=== PATIENT | male | born 1960 | race Caucasian/White ===

== ENCOUNTER 2023-05-31 20:05 | Inpatient (IN) | payer MEDICAID, SELFPAY ==
--- NOTE | ~2023-05-31 | CT_ITS ---
EXAMINATION: CT ABDOMEN AND PELVIS WITHOUT CONTRAST CLINICAL INFORMATION: abdominal pain, rule out appendicitis. COMPARISON: No pertinent prior studies are available for comparison. TECHNIQUE: Multidetector volumetric imaging was performed from the superior aspect of the liver through the pubic symphysis without contrast per request. Sagittal and coronal reformatted images were obtained on the technologist workstation. This CT examination was performed using dose optimization techniques as appropriate, variously including the following: *Automated exposure control *Adjustment of mA and/or kV according to patient size (this includes techniques or standardized protocols for targeted exams where dose is matched to indication/reason for exam; i.e. extremities or head) *Use of iterative reconstruction technique DLP: 892 mGy-cm. FINDINGS: LUNG BASES: Minimal dependent airspace changes likely due to atelectasis. Pacemaker/AICD leads noted. LIVER, GALLBLADDER, BILIARY TREE: Somewhat atrophic liver but no focal hepatic lesion nor biliary ductal dilatation on this noncontrast study. Gallbladder is markedly distended containing multiple radiodense layering gallstones. No obvious gallbladder wall thickening or pericholecystic inflammatory change. PANCREAS: Extremely atrophic and fatty infiltrated but no obvious peripancreatic fluid SPLEEN: Unremarkable. ADRENAL GLANDS: Unremarkable. KIDNEYS AND URETERS: The left kidney is atrophic with possible posttreatment region of fat necrosis along the posterior lower pole. There is compensatory hypertrophy of the contralateral right kidney. No obstructive changes within the kidneys or collecting system. BLADDER: Unremarkable. GASTROINTESTINAL TRACT: Colon is redundant containing moderate amount of stool. Few scattered colonic diverticula are present. I do not appreciate any colonic wall thickening or pericolonic inflammatory change at this time. Normal-appearing appendix with no periappendiceal inflammatory changes noted visualized small bowel unremarkable ABDOMINAL WALL: No significant hernia is appreciated. LYMPHOVASCULAR STRUCTURES: Extensive vascular calcification. No bulky adenopathy. PELVIC VISCERA: Unremarkable. OSSEUS STRUCTURES: Multilevel degenerative changes in the spine with degenerative changes in both hips CT/CT abdomen pelvis wo IV con IMPRESSION: 1. The gallbladder is markedly distended containing multiple radiodense gallstones but I do not appreciate any obvious gallbladder wall thickening or pericholecystic inflammatory change. No biliary ductal dilatation. 2. Atrophic left kidney with compensatory hypertrophy of the contralateral right kidney. 3. Normal-appearing appendix with no periappendiceal inflammatory changes. Moderate amount of stool throughout the redundant colon.
--- NOTE | ~2023-05-31 | US_ITS ---
EXAMINATION: US ABDOMEN LIMITED CLINICAL INFORMATION: Abnormal CT. Assess gallbladder.. COMPARISON: None available. TECHNIQUE: Real-time imaging of the right upper quadrant abdominal viscera. FINDINGS: PANCREAS: Not assessed. LIVER: Visualized liver is within normal limits. There is no intrahepatic biliary duct dilatation seen. GALLBLADDER: The gallbladder is distended and contains multiple small shadowing gallbladder calculi likely associated sludge. There is no gallbladder wall thickening. There is no pericholecystic fluid. COMMON BILE DUCT: Normal in caliber measuring 0.6 cm in diameter. RIGHT KIDNEY: Not imaged. FREE FLUID: None. US/US abdomen limited IMPRESSION: Cholelithiasis without sonographic evidence of acute cholecystitis.
[2023-05-31 20:16] VITALS: BP 151/92; PULSE 55; O2SAT 98
[2023-05-31 20:22] VITALS: BP 155/70; PULSE 58; RESP 16; TEMP 36.6; O2SAT 93; BMI 26.6
--- NOTE | 2023-05-31 20:36 | ED.ABDPAIN ---
HPI - Abdominal Pain General Chief Complaint: Abdominal Pain Stated Complaint: Abd pain Time Seen by Provider: 05/31/23 20:25 Source: patient, EMS and RN notes reviewed Mode of arrival: EMS Limitations: physical limitation History of Present Illness HPI narrative: 63-year-old male came in from custodial by ambulance for evaluation of abdominal pain. Patient's symptoms started since early today, patient described as diffuse abdominal pain for all day point to the left lower quadrant area but very tender on the exam in the lower abdomen, pain is associated with dry heaving and decreased p.o. intake, no fever chills, last bowel movement was yesterday was unremarkable. Never had similar symptoms in past, no intra-abdominal surgical history. patient lives at [facility] Related Data Allergies Allergy/AdvReac Type Severity Reaction Status Date / Time Losartan Allergy Unknown Unknown Uncoded 05/31/23 20:34 Review of Systems Review of Systems All other systems are reviewed and are negative Constitutional: Reports as per HPI and Reports no additional constitutional complaints Eyes: Reports as per HPI and Reports no additional eye complaints Reports system reviewed and no additional complaints, except as documented Cardiovascular: Reports as per HPI and Reports no additional cardiovascular complaints Respiratory: Reports as per HPI and Reports no additional respiratory complaints Gastrointestinal: Reports as per HPI and Reports no additional gastrointestinal complaints Genitourinary: Reports no additional female genitourinary complaints Musculoskeletal: Reports no additional musculoskeletal complaints Skin/Breast: Reports system reviewed and no additional complaints, except as docu Psychiatric: Reports no additional psychiatric complaints Endocrine: Reports no additional endocrine complaints Hematologic/Lymphatic: Reports no additional hematologic/lymphatic complaints Allergic/Immunologic: Reports no additional allergic/immunologic complaints Reports system reviewed and no additional complaints, except as documented and Reports Abnormal speech present [facility], [facility] Past Medical History FOR[facility] Narrative: Acute kidney failure in. Adjustment disorder with mixed anxiety and depression mood. CHF. CKD stage 4. DM. LYLA. HTN. Social History Social History Advance Directives: Yes Advance Directives Information Provided: No Advance Directives on File: No Physical Exam ED Vital Signs: Vital Signs - 24 hr 05/31/23 20:22 05/31/23 23:18 Temperature 97.8 F 97.5 F Pulse Rate 58 51 Respiratory Rate 16 16 Blood Pressure 155/70 H 158/66 H Pulse Oximetry 93 95 Oxygen Delivery Method Nasal Cannula Nasal Cannula Oxygen Flow Rate 4 BMI result Body Mass Index 26.6 Vital signs have been reviewed and appear to be correct. Blood pressure elevated. Heart rate normal. Respiratory rate normal. Temperature normal. Oxygen saturation normal. Appearance: Alert. Oriented X3. No acute distress. Head: Normal external exam. Normocephalic. Atraumatic. No Doss signs noted. No raccoon eyes noted Eyes: PERRLA. EOMI. Conjunctiva and sclera normal. Eyelids normal. ENT: TM's Normal. Pharynx normal. Uvula midline. Moist mucous membranes. No trismus noted. No drooling noted. No muffled voice noted. Neck: Normal inspection. Neck supple. FROM. No adenopathy. Thyroid Normal. No meningeal signs. No neck mass noted. CVS: Normal heart rate and rhythm. Heart sound normal. No murmurs noted. Pulses normal throughout. Respiratory: No respiratory distress. Painless inspiration. Breath sounds normal. No wheezes/rales/rhonchi noted. Chest nontender. No accessory muscle usage noted or decreased air movement noted. Abdomen: Soft , left lower abdominal tenderness with no rebound tenderness or guarding. Bowel sounds normal in all 4 quadrants. No distention noted. No organomegaly noted. No visible injury noted. Back: No CVA tenderness. Full range of motion noted. Skin: Skin warm and dry. Normal skin color. Normal skin turgor. No rashes/lesions/lacerations noted. Extremities: No lower extremity edema. Extremities exhibit normal range of motion. Extremities nontender. Neuro: Oriented X 3. Cranial nerve exam: II-XII are grossly intact No motor deficit. No sensory deficit. Reflexes normal. Course Reevaluation(s) Reevaluation #1: 63-year-old male came in for evaluation of vomiting and abdominal pain, unremarkable labs, CT of the abdomen concern of cholelithiasis, consider ultrasound to rule out acute cholecystitis, case signed out to Dr. Cortez for the final result of the ultrasound and disposition. Time: 01:31 Medical Decision Making Differential Diagnosis Differential Diagnoses: The differential diagnosis associated with the presentation includes ( Acute appendicitis, acute colitis, diverticulitis, kidney stone, UTI, pyelonephritis, acute cholecystitis, cholelithiasis, electrolyte abnormality, severe anemia.) Admission/Observation Consideration of admission/observation: Escalation of care including admission/observation considered Lab Data MDM Lab Attestation statement: I reviewed the patient's lab results. 05/31/23 20:51 05/31/23 23:17 Labs: Lab Results 05/31/23 05/31/23 05/31/23 Range/Units 20:51 23:17 23:33 WBC 7.1 (4.8-10.8) X10*3/uL RBC 3.86 L (4.60-5.80) X10*6/uL Hgb 11.8 L (14.0-18.0) g/dl Hct 36.9 L (42.0-52.0) % MCV 95.6 (80.0-98.0) fL MCH 30.6 (27.0-33.0) pg MCHC 32.0 (31.0-36.0) g/dl RDW 13.9 (11.0-16.0) % Plt Count 115 L (160-400) X10*3/uL MPV 10.0 (9.4-12.4) fL Immature Gran % (Auto) 0.1 (0.0-0.4) % Neut % (Auto) 71.9 (45-73) % Lymph % (Auto) 16.7 L (20-40) % [place] % (Auto) 4.5 (2-11) % Eos % (Auto) 6.0 H (0-4) % Baso % (Auto) 0.8 (0-2) % Lymph # (Auto) 1.2 (1.2-4.9) X10*3/uL [place] # (Auto) 0.3 (0.1-1.2) X10*3/uL Eos # (Auto) 0.4 (0.0-0.4) X10*3/uL Baso # (Auto) 0.1 (0.0-0.2) X10*3/uL Abs Immat Gran (auto) 0.01 (0.00-0.03) X10*3/uL Absolute Neuts (auto) 5.1 (2.0-8.3) x10*3/uL Absolute Nucleated RBC 0.000 (0.0-0.012) X10*3/uL Nucleated RBC % (auto) 0.0 (0.0-0.2) /100WBC Sodium 144 (135-145) mmol/L Potassium 5.9 H (3.3-5.1) mmol/L Chloride 110 H (96-108) mmol/L Carbon Dioxide 24 (22-29) mmol/L Anion Gap 16 (12-20) BUN 76 H (9-16) mg/dL Creatinine 3.66 H (0.5-1.4) mg/dL Estim Creat Clear Calc 19.9 Estimated GFR 17 Random Glucose 84 (60-115) mg/dL Calcium 9.2 (8.4-10.2) mg/dL Total Bilirubin 0.3 (0.0-1.0) mg/dL Direct Bilirubin 0.2 (0.0-0.5) mg/dL AST 16 (5-37) U/L ALT 8 (0-40) U/L Alkaline Phosphatase 52 (39-117) U/L Troponin I High Sens 17.7 (<3.5-35.0) ng/L Total Protein 6.7 (6.5-8.0) g/dL Albumin 3.0 L (3.5-5.0) g/dL Lipase 5 L (8-78) U/L Urine Color Yellow Urine Appearance Clear Urine pH 5.0 (5.0-9.0) Ur Specific [place] 1.010 (1.005-1.025) Urine Protein 300 (3+) H (Neg-Trace) mg/dL Urine Glucose (UA) Negative (Negative) mg/dL Urine Ketones Negative (Negative) mg/dL Urine Blood Moderate (2+) H (Negative) Urine Nitrite Negative (Negative) Ur Leukocyte Esterase Trace H (Negative) Urine RBC >20 H (0-2) /HPF Urine WBC 0-5 (0-5) /HPF Ur Squamous Epith Cells 0-2 (0-2) /HPF Urine Bacteria None Seen (None Seen) Hyaline Casts 0-2 (0-2) /LPF Influenza Type A (PCR) NEGATIVE (Negative) Influenza Type B (PCR) NEGATIVE (Negative) RSV RNA Qual (PCR) NEGATIVE (Negative) SARS-CoV-2 RNA (RT-PCR) NEGATIVE (Negative) Independent Interpretation I performed an independent interpretation of an: CT Scan ( Abdomen and pelvis:1. The gallbladder is markedly distended containing multiple radiodense gallstones but I do not appreciate any obvious gallbladder wall thickening or pericholecystic inflammatory change. No biliary ductal dilatation. 2. Atrophic left kidney with compensatory hypertrophy of the) Radiology Impression Discussion of test interpretation with radiology: I have reviewed the radiologist's reading. Medications Administered Discontinued Medications Generic Name Dose Route Start Last Admin Trade Name Freq PRN Reason Stop Dose Admin Sodium Chloride 1,000 mls @ 999 mls/hr 05/31/23 20:34 05/31/23 22:05 Ns IV 05/31/23 21:34 Infused .Q1H1M ONE Infusion Ondansetron HCl 4 mg 05/31/23 20:34 05/31/23 21:02 Ondansetron Hcl 4 Mg/2 Ml Vial IVPUSH 05/31/23 20:35 4 mg ONCE ONE Administration Discharge Plan Discharge Clinical Impression: Abdominal pain, Cholelithiasis Patient Disposition: Still a Patient Instructions: Biliary Colic (ED), Gallstones (ED) Referrals: Kb Brumfield MD [Physician] -
[2023-05-31 20:57] LABS: MANUAL DIFF FLAG NO
[2023-05-31 20:58] LABS: Basophils Absolute Auto 0.1 X10*3/uL (0.0-0.2); Basophils Percent Auto 0.8 % (0-2); Eosinophils Absolute Auto 0.4 X10*3/uL (0.0-0.4); Hematocrit 36.9 % (42.0-52.0); Hemoglobin 11.8 g/dl (14.0-18.0); Imm Gran Abs Auto 0.01 X10*3/uL (0.00-0.03); Imm Gran Pct Auto 0.1 % (0.0-0.4); Lymphocytes Absolute Auto 1.2 X10*3/uL (1.2-4.9); Lymphocytes Percent Auto 16.7 % (20-40); Mean Corpuscular Hemoglobin 30.6 pg (27.0-33.0); Mean Corpuscular Volume 95.6 fL (80.0-98.0); Monocytes Absolute Auto 0.3 X10*3/uL (0.1-1.2); Monocytes Percent Auto 4.5 % (2-11); Neutrophils Absolute Auto 5.1 x10*3/uL (2.0-8.3); Neutrophils Percent Auto 71.9 % (45-73); Platelet Count 115 X10*3/uL (160-400); Red Blood Count 3.86 X10*6/uL (4.60-5.80); Red Cell Distribution Width 13.9 % (11.0-16.0); White Blood Count 7.1 X10*3/uL (4.8-10.8)
[2023-05-31] MEDS: ondansetron HCL 4 MG/2 ML VIAL IVPUSH (21:02)
[2023-05-31] MEDS: 0.9 % Sodium Chloride 1,000 ML 999 ML IV (21:02)
[2023-05-31 21:20] LABS: Troponin-I High Sensitivity 17.7 ng/L (<3.5-35.0)
[2023-05-31 21:39] LABS: Influenza A PCR NEGATIVE (Negative); Influenza B PCR NEGATIVE (Negative); Resp Syncy Virus RNA Qual PCR NEGATIVE (Negative); SARS COV2 PCR INHOUSE NEGATIVE (Negative)
[2023-05-31 23:18] VITALS: BP 158/66; PULSE 51; RESP 16; TEMP 36.4; O2SAT 95
--- NOTE | 2023-05-31 23:38 | MHC.EDTECH ---
Pt stated that he feels like he needs to urinate. Attempted to help pt to use urinal with no success initially. Performed bladder scan of 481ml. Provider notified. After bladder scan pt stated he would like to try again and was successful with voiding 400ml total. Some blood noted on tip of penis and some blood stains on brief. Provider and RN aware, Urine sample sent.
[2023-05-31 23:52] LABS: Appearance Urine Clear; Color Urine Yellow; Glucose Urine UA Negative (Negative); Leukocyte Esterase Urine Trace (Negative); Nitrite Urine Negative (Negative); UMIC TRIGGER UACC YES; Urine Blood Moderate (2+) (Negative); Urine Ketones Negative (Negative); Urine Protein 300 (3+) mg/dL (Neg-Trace)
[2023-05-31 23:53] LABS: Alanine Aminotransferase 8 U/L (0-40); Alkaline Phosphatase 52 U/L (39-117); Anion Gap 16 (12-20); Aspartate Amino Transferase 16 U/L (5-37); Bilirubin Direct 0.2 mg/dL (0.0-0.5); Bilirubin Total 0.3 mg/dL (0.0-1.0); Blood Urea Nitrogen 76 mg/dL (9-16); Calcium 9.2 mg/dL (8.4-10.2); Carbon Dioxide 24 mmol/L (22-29); Chloride 110 mmol/L (96-108); Creatinine Clr Calc Pharmacy 19.9; Estimated Glomerular Filt Rate 17; Glucose Random 84 mg/dL (60-115); Lipase 5 U/L (8-78); Potassium 5.9 mmol/L (3.3-5.1); Sodium 144 mmol/L (135-145); Total Protein 6.7 g/dL (6.5-8.0)
[2023-05-31 23:57] LABS: Bacteria Urine None Seen (None Seen); Hyaline Casts Urine 0-2 /LPF (0-2); RBC Urine >20 /HPF (0-2); Squamous Epithelial Cell Urine 0-2 /HPF (0-2); WBC Urine 0-5 /HPF (0-5)
[2023-06-01] VITALS (9 sets, daily range): BP systolic 126–172; BP diastolic 63–76; PULSE 50–57; RESP 12–16; TEMP 36.4–37; O2SAT 92–99
[2023-06-01] MEDS: HYDROmorphone HCl 1 MG/ML SYRINGE IVPUSH (02:19)
[2023-06-01] MEDS: 0.9 % Sodium Chloride 1,000 ML 999 ML IV (04:54)
[2023-06-01 08:17] LABS: Anion Gap 13 (12-20); Blood Urea Nitrogen 70 mg/dL (9-16); Calcium 8.9 mg/dL (8.4-10.2); Carbon Dioxide 25 mmol/L (22-29); Chloride 111 mmol/L (96-108); Creatinine Clr Calc Pharmacy 20.6; Estimated Glomerular Filt Rate 17; Glucose Random 91 mg/dL (60-115); Potassium 5.6 mmol/L (3.3-5.1); Sodium 143 mmol/L (135-145)
--- NOTE | 2023-06-01 09:03 | PHA.MEDREC ---
Pharmacy Consult ? Medication Reconciliation Pharmacy has completed the medication reconciliation.
--- NOTE | 2023-06-01 09:10 | PC.NURSE ---
Patient sleeping. awakens easily to verbal stimuli. skin pwd, resp even and non labored. speaking in full, clear sentences. able to make needs known. patient voided via urinal. currently on o2 3.5lpm via NC, O2 sat 99%. titrated O2 down to 2lpm via NC at this time. awaiting admission
--- NOTE | 2023-06-01 09:39 | P.HPHOSP_ITS ---
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 He was brought to the ED from [facility] with complaint of abdominal pain, dry heaving, and dizziness. ED work up CT show gallstone but no chololithiasis, potassium os 5.6 and Creatine 3.55 which is within his baseline, last creatione at [facility] was 4.1 on 05/16 when he was discharged. At the time of my evaluation, he complained of no abdominal and wa having no nausea or vomitting Review of Systems 2 Review of Systems: Gen: no fever Resp: no sob, no cough CV: no chest, no TOUSSAINT, no leg edema GI: No n/v, no abd pain Neuro: No confusion [facility] Medical History (Updated 06/02/23 @ 09:37 by Arjun Crespo MD) History of recurrent UTIs Psoriasis Major depression Hypoglycemia HTN (hypertension) History of ventricular tachycardia Gout GERD (gastroesophageal reflux disease) NICOL (generalized anxiety disorder) Diabetes COPD (chronic obstructive pulmonary disease) Complications of immobility CKD (chronic kidney disease) stage 4, GFR 15-29 ml/min Combined systolic and diastolic congestive heart failure BPH (benign prostatic hyperplasia) Biventricular automatic implantable cardioverter defibrillator in situ Chronic anemia Social History Household Members: Unknown / Unable to assess Unable to assess alcohol history related to: Unknown Patient Tobacco Use Status: Never used Tobacco Use of substances other than those prescribed or required for medical reasons: Unknown Advance Directives: No Advance Directives Information Provided: No Advance Directives on File: No Do you have thoughts of harming others: None Do you have a plan to hurt others: No Plan Recently lost weight without trying: Unsure Nutrition Risks: No Nutritional Risk Meds Allergies Allergy/AdvReac Type Severity Reaction Status Date / Time Losartan Allergy Unknown Unknown Uncoded 05/31/23 20:34 Home Medications Medication Instructions Recorded Confirmed Last Taken Type amiodarone 200 mg tablet 200 mg PO DAILY 06/01/23 06/01/23 Unknown History amlodipine 10 mg tablet 10 mg PO DAILY 06/01/23 06/01/23 Unknown History ascorbic acid (vitamin C) 500 mg 500 mg PO BID 06/01/23 06/01/23 Unknown History tablet aspirin 81 mg tablet,delayed 81 mg PO DAILY 06/01/23 06/01/23 Unknown History release atorvastatin 10 mg tablet 10 mg PO BEDTIME 06/01/23 06/01/23 Unknown History bisacodyl 10 mg rectal suppository 10 mg NC DAILY PRN Constipation 06/01/23 06/01/23 Unknown History bupropion HCl 300 mg 24 hr tablet, 300 mg PO DAILY 06/01/23 06/01/23 Unknown History extended release carvedilol 12.5 mg tablet 12.5 mg PO BID 06/01/23 06/01/23 Unknown History cholecalciferol (vitamin D3) 25 25 mcg PO DAILY 06/01/23 06/01/23 Unknown History mcg (1,000 unit) tablet doxycycline hyclate 100 mg tablet 100 mg PO BID 06/01/23 06/01/23 Unknown History ferrous sulfate 325 mg (65 mg 325 mg PO Q2D 06/01/23 06/01/23 Unknown History iron) tablet fluoxetine 40 mg capsule 40 mg PO DAILY 06/01/23 06/01/23 Unknown History gabapentin 100 mg capsule 100 mg PO BID 06/01/23 06/01/23 Unknown History insulin glargine 100 unit/mL (3 15 unit subcut BEDTIME 06/01/23 06/01/23 Unknown History mL) subcutaneous pen (Lantus Solostar U-100 Insulin) insulin lispro 100 unit/mL 1 sliding scale dose subcut 06/01/23 06/01/23 Unknown History subcutaneous solution USEASDIRECTD isosorbide mononitrate 60 mg 60 mg PO DAILY 06/01/23 06/01/23 Unknown History tablet,extended release 24 hr lactulose 10 gram/15 mL oral 20 g PO TID PRN Constipation 06/01/23 06/01/23 Unknown History solution latanoprost 0.005 % eye drops 1 drp ophthalmic (eye) BEDTIME 06/01/23 06/01/23 Unknown History lorazepam 0.5 mg tablet 0.5 mg PO BID PRN Anxiety 06/01/23 06/01/23 Unknown History melatonin 3 mg tablet 3 mg PO BEDTIME 06/01/23 06/01/23 Unknown History multivitamin 1 tab PO DAILY 06/01/23 06/01/23 Unknown History oxycodone 10 mg tablet 10 mg PO Q4H PRN Pain 06/01/23 06/01/23 Unknown History pantoprazole 40 mg tablet,delayed 40 mg PO DAILY 06/01/23 06/01/23 Unknown History release polyethylene glycol 3350 17 17 g PO DAILY 06/01/23 06/01/23 Unknown History gram/dose oral powder sennosides 8.6 mg tablet (senna) 17.2 mg PO BID 06/01/23 06/01/23 Unknown History tamsulosin 0.4 mg capsule 0.4 mg PO BEDTIME 06/01/23 06/01/23 Unknown History tizanidine 2 mg tablet 2 mg PO Q8H PRN MUSCLE SPASMS 06/01/23 06/01/23 Unknown History trazodone 300 mg tablet 300 mg PO BEDTIME 06/01/23 06/01/23 Unknown History zinc acetate 50 mg (zinc) capsule 50 mg PO DAILY 06/01/23 06/01/23 Unknown History Physical Exam 2 Vital Signs and Narrative: Vital Signs: Last Vital Signs Temp 97.7 F 06/01/23 07:42 Pulse 50 06/01/23 07:42 Resp 14 06/01/23 07:42 BP 148/73 H 06/01/23 07:42 Pulse Ox 97 06/01/23 07:42 O2 Del Method Nasal Cannula 06/01/23 07:42 O2 Flow Rate 4 06/01/23 07:42 Oxygen Flow Rate 3 05/31/23 20:22 BMI result Body Mass Index 26.6 Const: Other: Constitutional: Alert, in no distress, overweight. Mental Status: Oriented to person, place and time. Eyes: Pupils are equal, round and reactive to light. Ear, Nose and Throat: Oropharynx clear, mucous membranes moist. Ears and nose without eformities. Trachea midline. Respiratory: Clear to auscultation. No wheezing, rales or rhonchi. Cardiovascular: S1 S2 regular. No murmurs, rubs or gallops. Gastrointestinal: Abdomen soft, non-tender, non-distended. Normal bowel sounds.? Neurologic: Cranial nerves II-XII grossly intact. No focal neurological deficits. Moves all extremities spontaneously.? Skin: No rashes or lesions, he has a right heel ulcer Musculoskeletal: No cyanosis or clubbing. Psychiatric: Normal mood and affect? Results Labs 05/31/23 20:51 06/01/23 07:53 Labs: Laboratory Results - last 24 hr 05/31/23 05/31/23 05/31/23 20:51 23:17 23:33 MCV 95.6 MCH 30.6 MCHC 32.0 RDW 13.9 Plt Count 115 L MPV 10.0 Immature Gran % (Auto) 0.1 Neut % (Auto) 71.9 Lymph % (Auto) 16.7 L [place] % (Auto) 4.5 Eos % (Auto) 6.0 H Baso % (Auto) 0.8 Lymph # (Auto) 1.2 [place] # (Auto) 0.3 Eos # (Auto) 0.4 Baso # (Auto) 0.1 Abs Immat Gran (auto) 0.01 Absolute Neuts (auto) 5.1 Absolute Nucleated RBC 0.000 Nucleated RBC % (auto) 0.0 Anion Gap 16 Estim Creat Clear Calc 19.9 Estimated GFR 17 Random Glucose 84 Calcium 9.2 Total Bilirubin 0.3 Direct Bilirubin 0.2 AST 16 ALT 8 Alkaline Phosphatase 52 Total Protein 6.7 Albumin 3.0 L Lipase 5 L Urine Color Yellow Urine Appearance Clear Urine pH 5.0 Ur Specific [place] 1.010 Urine Protein 300 (3+) H Urine Glucose (UA) Negative Urine Ketones Negative Urine Blood Moderate (2+) H Urine Nitrite Negative Ur Leukocyte Esterase Trace H Urine RBC >20 H Urine WBC 0-5 Ur Squamous Epith Cells 0-2 Urine Bacteria None Seen Hyaline Casts 0-2 Influenza Type A (PCR) NEGATIVE Influenza Type B (PCR) NEGATIVE RSV RNA Qual (PCR) NEGATIVE SARS-CoV-2 RNA (RT-PCR) NEGATIVE 06/01/23 07:53 MCV MCH MCHC RDW Plt Count MPV Immature Gran % (Auto) Neut % (Auto) Lymph % (Auto) [place] % (Auto) Eos % (Auto) Baso % (Auto) Lymph # (Auto) [place] # (Auto) Eos # (Auto) Baso # (Auto) Abs Immat Gran (auto) Absolute Neuts (auto) Absolute Nucleated RBC Nucleated RBC % (auto) Anion Gap 13 Estim Creat Clear Calc 20.6 Estimated GFR 17 Random Glucose 91 Calcium 8.9 Total Bilirubin Direct Bilirubin AST ALT Alkaline Phosphatase Total Protein Albumin Lipase Urine Color Urine Appearance Urine pH Ur Specific [place] Urine Protein Urine Glucose (UA) Urine Ketones Urine Blood Urine Nitrite Ur Leukocyte Esterase Urine RBC Urine WBC Ur Squamous Epith Cells Urine Bacteria Hyaline Casts Influenza Type A (PCR) Influenza Type B (PCR) RSV RNA Qual (PCR) SARS-CoV-2 RNA (RT-PCR) Imaging Radiologist's Impressions: Impressions Abdomen/Pelvis CT 05/31/23 22:27 IMPRESSION: 1. The gallbladder is markedly distended containing multiple radiodense gallstones but I do not appreciate any obvious gallbladder wall thickening or pericholecystic inflammatory change. No biliary ductal dilatation. 2. Atrophic left kidney with compensatory hypertrophy of the contralateral right kidney. 3. Normal-appearing appendix with no periappendiceal inflammatory changes. Moderate amount of stool throughout the redundant colon. Abdomen Ultrasound 06/01/23 02:00 IMPRESSION: Cholelithiasis without sonographic evidence of acute cholecystitis. 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 work with mild hyperkalemia, gallstone but no cholecystitis Plan: At the present time he doesn't appear to be having any pain, will resume diet, IVF and if tolerate then can be discharged. Renal function is within his baseline of CKD. Will resume outpatient medications per med rec. Hold Lantu at night if not eating, add SSI. Lovenox for DVT prophylaxis. Quality Stroke Does the patient have a stroke diagnosis?: No VTE Prior VTE?: No VTE Risk Level:: Medical - moderate - high VTE Device Contraindication: Treatment Not Indicated VTE Drug Contraindication: N/A - Med Ordered
[2023-06-01] MEDS: buPROPion HCl XL 300 MG TAB.ER.24H PO (12:05)
[2023-06-01] MEDS: polyethylene glycoL 3350 17 GM POWD.PACK PO (12:05)
[2023-06-01] MEDS: Multivitamin TABLET 1 TAB PO (12:07)
[2023-06-01] MEDS: Amiodarone HCL 200 MG TABLET PO (12:07)
[2023-06-01] MEDS: Cholecalciferol (Vitamin D3) 25 MCG TABLET PO (12:07)
[2023-06-01] MEDS: Isosorbide Mononitrate 60 MG TAB.ER.24H PO (12:07)
[2023-06-01] MEDS: Aspirin Enteric Coated 81 MG TABLET.DR PO (12:07)
[2023-06-01] MEDS: Gabapentin 100 MG CAPSULE PO ×2 (12:08→20:52)
[2023-06-01] MEDS: carvediloL 12.5 MG TABLET PO ×2 (12:08→20:52)
[2023-06-01] MEDS: Ascorbic Acid 500 MG TABLET PO ×2 (12:08→20:52)
[2023-06-01] MEDS: amLODIPine Besylate 10 MG TABLET PO (12:08)
[2023-06-01] MEDS: Doxycycline Monohydrate 100 MG CAPSULE PO ×2 (12:08→20:52)
[2023-06-01] MEDS: Sennosides 8.6 MG TABLET 17.2 MG PO ×2 (12:08→20:53)
[2023-06-01] MEDS: Enoxaparin Sodium 30 MG/0.3 ML SYRINGE SUBCUT (12:09)
[2023-06-01] MEDS: FLUoxetine HCl 20 MG CAPSULE 40 MG PO (12:09)
[2023-06-01 12:16] LABS: Glucose, Whole Blood 106 mg/dL (60-115)
--- NOTE | 2023-06-01 12:24 | PC.NURSE ---
Patient awake and alert. skin pwd. resp even and non labored. speaking in full, clear sentences. reports 8/10 lower abdominal pain. active bowel sounds x 4 quadrants, states last BM was yesterday. abdomen soft, non distended. voided via urinal at this time. also complains of pain to bilateral feet, bandaid in place to ulcer on right heel w/ no strikethrough noted. pedal pulses palpable bilaterally. continues to c/o feeling cold, vss, afebrile, warm blankets given. patient medicated as ordered. awaiting admission.
[2023-06-01] MEDS: Sodium Chloride 0.45 % 1,000 ML 150 ML IVCONT ×2 (12:34→20:51)
[2023-06-01] MEDS: oxyCODONE HCl Immed Release 5 MG TABLET PO ×2 (13:10→17:13)
[2023-06-01] MEDS: Ferrous Sulfate 324 MG TABLET.DR PO (13:10)
[2023-06-01] MEDS: LORazepam 0.5 MG TABLET PO (13:11)
[2023-06-01 16:15] LABS: Glucose, Whole Blood 123 mg/dL (60-115)
[2023-06-01] MEDS: TiZANidine HCL 4 MG TABLET 2 MG PO (17:16)
--- NOTE | 2023-06-01 18:18 | MHC.EDTECH ---
Dinner tray given
--- NOTE | 2023-06-01 19:12 | PC.NURSE ---
this rn assumed care of pt. pt repositioned in bed at this time, pillow placed on right side for pt comfort. vss.
--- NOTE | 2023-06-01 19:23 | PC.NURSE ---
pt right heel wound cleaned and re-dressed at this time. pt tolerated well.
[2023-06-01 20:46] LABS: Glucose, Whole Blood 133 mg/dL (60-115)
[2023-06-01] MEDS: Tamsulosin HCL 0.4 MG CAPSULE PO (20:52)
[2023-06-01] MEDS: Melatonin 3 MG TABLET PO (20:52)
[2023-06-01] MEDS: Atorvastatin Calcium 10 MG TABLET PO (20:52)
[2023-06-01] MEDS: traZODone HCL 100 MG TABLET 300 MG PO (20:53)
[2023-06-01] MEDS: Insulin Glargine,Hum.rec.anlog 100 UNIT/ML 10 ML VIAL 15 UNIT SUBCUT (20:56)
--- NOTE | 2023-06-01 21:06 | PC.NURSE ---
pt medicated per mar at this time. pt tolerated medications well with water, 3 medications at a time. pharmacy contacted for eye drops.
--- NOTE | 2023-06-01 22:58 | PC.NURSE ---
report given to Velvet in overflow.
[2023-06-02 02:35] LABS: Glucose, Whole Blood 81 mg/dL (60-115)
[2023-06-02] MEDS: oxyCODONE HCl Immed Release 5 MG TABLET PO ×2 (02:35→11:07)
[2023-06-02] MEDS: Omeprazole 20 MG CAPSULE.DR PO (06:02)
[2023-06-02] MEDS: Sodium Chloride 0.45 % 1,000 ML 150 ML IVCONT ×2 (06:02→15:21)
[2023-06-02 06:30] VITALS: BP 138/81; PULSE 59; RESP 16; TEMP 36.1; O2SAT 95
[2023-06-02 07:22] LABS: Glucose, Whole Blood 78 mg/dL (60-115)
[2023-06-02 08:37] VITALS: BP 148/76; PULSE 50; RESP 20; TEMP 36.4; O2SAT 98
--- NOTE | 2023-06-02 09:37 | P.PNIM_ITS ---
Subjective Subjective Date of Service: 06/02/23 Interval History: Seen in f/u for dehydration, renal failure. Sleepy easily aroused to have full conversation, states that he doesn't feel good, right heel hurts and generally achy Physical Exam 2 Vital Signs: Vital Signs: Last Vital Signs Temp 97.6 F 06/02/23 08:37 Pulse 50 06/02/23 08:37 Resp 20 06/02/23 08:37 BP 148/76 H 06/02/23 08:37 Pulse Ox 98 06/02/23 08:37 O2 Del Method Nasal Cannula 06/02/23 08:37 O2 Flow Rate 2 06/02/23 08:37 Oxygen Flow Rate 3 05/31/23 20:22 BMI result Body Mass Index 26.6 Const: Other: General: AO X 3, no acute distress Resp: CTA bilateral CVS: S1,S2,RRR GI: +BS, NT, no distention Skin: right heel pressure ulcer, present on admission Neuro: motor grossly intact Psych: appropriate affect Objective Data Active Medications Amiodarone HCl (Amiodarone Hcl 200 Mg Tablet) 200 mg PO DAILY [facility] Last Admin: 06/01/23 12:07 Dose: 200 mg Documented By: GREYSON Amlodipine Besylate (Amlodipine Besylate 10 Mg Tablet) 10 mg PO DAILY [facility]; Protocol Last Admin: 06/01/23 12:08 Dose: 10 mg Documented By: GREYSON Ascorbic Acid (Ascorbic Acid 500 Mg Tablet) 500 mg PO BID [facility] Last Admin: 06/01/23 20:52 Dose: 500 mg Documented By: BALTA Aspirin (Aspirin Enteric Coated 81 Mg Tablet.) 81 mg PO DAILY [facility] Last Admin: 06/01/23 12:07 Dose: 81 mg Documented By: GREYSON Atorvastatin Calcium (Atorvastatin Calcium 10 Mg Tablet) 10 mg PO BEDTIME [facility] Last Admin: 06/01/23 20:52 Dose: 10 mg Documented By: BALTA Bisacodyl (Bisacodyl 10 Mg Supp.Rect) 10 mg WI DAILY PRN PRN Reason: Constipation Bupropion HCl (Bupropion Hcl Xl 300 Mg Tab.Er.24h) 300 mg PO DAILY [facility] Last Admin: 06/01/23 12:05 Dose: 300 mg Documented By: GREYSON Carvedilol (Carvedilol 12.5 Mg Tablet) 12.5 mg PO BID [facility]; Protocol Last Admin: 06/01/23 20:52 Dose: 12.5 mg Documented By: BALTA Dextrose (Dextrose 50 % 25 Gm/50 Ml Syringe) 25 gm IVPUSH Q15M PRN; Protocol PRN Reason: per Hypoglycemia Standing Ord. Doxycycline Monohydrate (Doxycycline Monohydrate 100 Mg Capsule) 100 mg PO BID [facility] Last Admin: 06/01/23 20:52 Dose: 100 mg Documented By: BALTA Enoxaparin Sodium (Enoxaparin Sodium 30 Mg/0.3 Ml Syringe) 30 mg SUBCUT Q24H [facility] Last Admin: 06/01/23 12:09 Dose: 30 mg Documented By: GREYSON Ferrous Sulfate (Ferrous Sulfate 324 Mg Tablet.) 324 mg PO Q2D [facility] Last Admin: 06/01/23 13:10 Dose: 324 mg Documented By: GREYSON Fluoxetine HCl (Fluoxetine Hcl 20 Mg Capsule) 40 mg PO DAILY [facility] Last Admin: 06/01/23 12:09 Dose: 40 mg Documented By: GREYSON Gabapentin (Gabapentin 100 Mg Capsule) 100 mg PO BID [facility] Last Admin: 06/01/23 20:52 Dose: 100 mg Documented By: BALTA Glucose (Glucose Gel 15 Gm Gel..Gram.) 15 gm PO Q15M PRN; Protocol PRN Reason: per Hypoglycemia Standing Ord. Sodium Chloride (Sodium Chloride 0.45 %) 1,000 mls @ 150 mls/hr IVCONT .Q6H40M [facility] Last Admin: 06/02/23 06:02 Dose: 150 mls/hr Documented By: RODRIGUEZ Insulin Glargine (Insulin Glargine,Hum.Rec.Anlog 100 Unit/Ml 10 Ml Vial) 15 unit SUBCUT BEDTIME [facility] Last Admin: 06/01/23 20:56 Dose: 15 unit Documented By: BALTA Insulin Human Lispro (Insulin Lispro 100 Unit/Ml 3 Ml Vial) 0 unit SUBCUT QIDACHS [facility]; Protocol Last Admin: 06/02/23 07:53 Dose: Not Given Documented By: DEMETRIUS Non-Admin Reason: No Insulin Coverage Isosorbide Mononitrate (Isosorbide Mononitrate 60 Mg Tab.Er.24h) 60 mg PO DAILY [facility]; Protocol Last Admin: 06/01/23 12:07 Dose: 60 mg Documented By: GREYSON Lactulose (Lactulose 20 Gm/30 Ml Solution) 20 gm PO TID PRN PRN Reason: Constipation Latanoprost (Latanoprost 0.005 % Ophth Edna 2.5 Ml Drops) 1 drop EYE-BOTH BEDTIME [facility] Last Admin: 06/01/23 23:36 Dose: Not Given Documented By: RODRIGUEZ Non-Admin Reason: Med Not Available Lorazepam (Lorazepam 0.5 Mg Tablet) 0.5 mg PO BID PRN PRN Reason: Anxiety Last Admin: 06/01/23 13:11 Dose: 0.5 mg Documented By: GREYSON Melatonin (Melatonin 3 Mg Tablet) 3 mg PO BEDTIME [facility] Last Admin: 06/01/23 20:52 Dose: 3 mg Documented By: BALTA Multivitamins/Vitamin C (Multivitamin Tablet) 1 tab PO DAILY [facility] Last Admin: 06/01/23 12:07 Dose: 1 tab Documented By: GREYSON Omeprazole (Omeprazole 20 Mg Capsule.Dr) 20 mg PO DAILY@0630 [facility] Last Admin: 06/02/23 06:02 Dose: 20 mg Documented By: RODRIGUEZ Oxycodone HCl (Oxycodone Hcl Immed Release 5 Mg Tablet) 5 mg PO Q4H PRN PRN Reason: Pain, Severe (Pain Scale 7-10) Last Admin: 06/02/23 02:35 Dose: 5 mg Documented By: RODRIGUEZ Polyethylene Glycol (Polyethylene Glycol 3350 17 Gm Powd.Pack) 17 gm PO DAILY [facility] Last Admin: 06/01/23 12:05 Dose: 17 gm Documented By: GREYSON Senna (Sennosides 8.6 Mg Tablet) 17.2 mg PO BID [facility] Last Admin: 06/01/23 20:53 Dose: 17.2 mg Documented By: BALTA Sodium Chloride (0.9 % Sodium Chloride Flush 3 Ml Syringe) 3 ml IVFLUSH QSHIFT [facility] Last Admin: 06/02/23 00:24 Dose: Not Given Documented By: RODRIGUEZ Non-Admin Reason: IV Running Tamsulosin HCl (Tamsulosin Hcl 0.4 Mg Capsule) 0.4 mg PO BEDTIME [facility] Last Admin: 06/01/23 20:52 Dose: 0.4 mg Documented By: BALTA Tizanidine HCl (Tizanidine Hcl 4 Mg Tablet) 2 mg PO Q8H PRN PRN Reason: MUSCLE SPASMS Last Admin: 06/01/23 17:16 Dose: 2 mg Documented By: ANNIE Trazodone HCl (Trazodone Hcl 100 Mg Tablet) 300 mg PO BEDTIME [facility] Last Admin: 06/01/23 20:53 Dose: 300 mg Documented By: BALTA Vitamin D (Cholecalciferol (Vitamin D3) 25 Mcg Tablet) 25 mcg PO DAILY [facility] Last Admin: 06/01/23 12:07 Dose: 25 mcg Documented By: GREYSON Zinc Sulfate (Zinc Sulfate 220 Mg Capsule) 220 mg PO DAILY [facility] Labs 05/31/23 20:51 06/01/23 07:53 Labs: Laboratory Results - last 24 hr 06/01/23 06/01/23 06/01/23 12:12 16:11 20:42 POC Glucose 106 123 H 133 H 06/02/23 06/02/23 02:31 07:14 POC Glucose 81 78 Assessment and Plan (1) Dehydration: Status: Acute Plan 63-year-old male with PMH of nonischemic cardiomyopathy, 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 work up with mild hyperkalemia, gallstone but no cholecystitis Plan: CKD with possible mild Silvia, dehydration -IVF, check BMP Abdominal pain--imagin (CT and US), gallstone but no cholecystitis, no pain at the moment, ? intermittent biliary colic, consider surgery eval Diabetes--controlled, continue Lantus, SSI if not eating hold Lantus BPH--Flomax GERD --PPI HTN--continue Coreg, amlodipine PAF, nonischemic cardiomyopathy s/p AICD, continue amio CAD--ASA, BB, Statin Recent foot ulcer--continue Doxy DVT prophylaxis--Lovenox Ful code Quality Stroke Does the patient have a stroke diagnosis?: No VTE Prior VTE?: No VTE Risk Level:: Medical - moderate - high VTE Device Contraindication: Treatment Not Indicated VTE Drug Contraindication: N/A - Med Ordered
--- NOTE | 2023-06-02 09:41 | MHC.CM.PN ---
[facility] pt to return to same
[2023-06-02 10:48] LABS: Anion Gap 11 (12-20); Blood Urea Nitrogen 66 mg/dL (9-16); Carbon Dioxide 27 mmol/L (22-29); Chloride 109 mmol/L (96-108); Creatinine Clr Calc Pharmacy 21.4; Estimated Glomerular Filt Rate 18; Glucose Random 93 mg/dL (60-115); Potassium 5.5 mmol/L (3.3-5.1); Sodium 141 mmol/L (135-145)
[2023-06-02] MEDS: Gabapentin 100 MG CAPSULE PO ×2 (10:56→21:37)
[2023-06-02] MEDS: Doxycycline Monohydrate 100 MG CAPSULE PO ×2 (10:57→21:37)
[2023-06-02] MEDS: buPROPion HCl XL 300 MG TAB.ER.24H PO (10:57)
[2023-06-02] MEDS: polyethylene glycoL 3350 17 GM POWD.PACK PO (10:57)
[2023-06-02] MEDS: amLODIPine Besylate 10 MG TABLET PO (10:57)
[2023-06-02] MEDS: FLUoxetine HCl 20 MG CAPSULE 40 MG PO (10:57)
[2023-06-02] MEDS: Sennosides 8.6 MG TABLET 17.2 MG PO ×2 (10:57→21:36)
[2023-06-02] MEDS: carvediloL 12.5 MG TABLET PO ×2 (10:58→21:37)
[2023-06-02] MEDS: Isosorbide Mononitrate 60 MG TAB.ER.24H PO (10:58)
[2023-06-02] MEDS: Amiodarone HCL 200 MG TABLET PO (10:58)
[2023-06-02] MEDS: Multivitamin TABLET 1 TAB PO (10:58)
[2023-06-02] MEDS: Aspirin Enteric Coated 81 MG TABLET.DR PO (10:58)
[2023-06-02] MEDS: Zinc Sulfate 220 MG CAPSULE PO (10:58)
[2023-06-02] MEDS: Ascorbic Acid 500 MG TABLET PO ×2 (10:58→21:36)
[2023-06-02] MEDS: Enoxaparin Sodium 30 MG/0.3 ML SYRINGE SUBCUT (10:59)
[2023-06-02] MEDS: Cholecalciferol (Vitamin D3) 25 MCG TABLET PO (11:07)
[2023-06-02 11:26] LABS: Glucose, Whole Blood 92 mg/dL (60-115)
--- NOTE | 2023-06-02 13:37 | P.CONGS_ITS ---
History of Present Illness Consult details Consult date: 06/02/23 <SANDRA Arcos Last Filed: 06/02/23 13:54> Requesting physician: Arjun Crespo <SANDRA Arcos Last Filed: 06/02/23 13:54> Narrative: 63-year-old male with significant medical history including nonischemic cardiomyopathy, combined systolic and diastolic heart failure with ICD in place, paroxysmal atrial fibrillation, oxygen dependent COPD, CKD stage IV, type 2 diabetes mellitus, HTN, chronic opiate use with recent [place] [facility] [place] for severe constipation that required desimpaction. He was brought to the ED from [facility] with complaints of abdominal pain, dry heaving, and dizziness. ED work up included CT scan abd/pelvis and ABD US which showed gallstones and moderate stool burden. Lab abnormalities significant for a potassium of 5.6. He was admitted to the hospitalist service for dehydration. The patient reports his abd pain started a day or two before presentation and started in the RUQ and was severe in nature. He reports now it is somewhat improved in severity but persists. It has been associated with nausea, and dry heaves and decreased PO intake. He denies fevers, chills. <SANDRA Arcos Last Filed: 06/02/23 13:54> Review of Systems 2 Constitutional: Constitutional: Denies chills and Denies fever(s) < SANDRA Arcos Last Filed: 06/02/23 13:54> Cardiovascular: Cardiovascular: Denies chest pain and Denies dyspnea < SANDRA Arcos Last Filed: 06/02/23 13:54> Respiratory: Respiratory: Denies cough and Denies dyspnea <SANDRA Arcos Last Filed: 06/02/23 13:54> Gastrointestinal: Gastrointestinal: Reports as per HPI <SANDRA Arcos Last Filed: 06/02/23 13:54> Genitourinary: Genitourinary: Denies dysuria <SANDRA Arcos Last Filed: 06/02/23 13:54> Integumentary/Breasts: Skin/Breast: Denies rash and Denies jaundice < Keshia Nagy PA-C - Last Filed: 06/02/23 13:54> [facility] Past Medical History Medical History: Medical History (Updated 06/02/23 @ 13:52 by Keshia Nagy PA-C) ICD (implantable cardioverter-defibrillator) in place History of recurrent UTIs Psoriasis Major depression Hypoglycemia HTN (hypertension) History of ventricular tachycardia Gout GERD (gastroesophageal reflux disease) NICOL (generalized anxiety disorder) Diabetes COPD (chronic obstructive pulmonary disease) Complications of immobility CKD (chronic kidney disease) stage 4, GFR 15-29 ml/min Combined systolic and diastolic congestive heart failure BPH (benign prostatic hyperplasia) Biventricular automatic implantable cardioverter defibrillator in situ Chronic anemia <Keshia Nagy PA-C - Last Filed: 06/02/23 13:54> Social History Social History: Social History Household Members: Unknown / Unable to assess Unable to assess alcohol history related to: Unknown Patient Tobacco Use Status: Never used Tobacco service: No <Keshia Nagy PA-C - Last Filed: 06/02/23 13:54> Meds Allergies/Adverse reactions: Allergies Allergy/AdvReac Type Severity Reaction Status Date / Time Losartan Allergy Unknown Unknown Uncoded 05/31/23 20:34 <Keshia Nagy PA-C - Last Filed: 06/02/23 13:54> Active Medications: Current Medications Amiodarone HCl (Amiodarone Hcl 200 Mg Tablet) 200 mg PO DAILY [facility] Last Admin: 06/02/23 10:58 Dose: 200 mg Amlodipine Besylate (Amlodipine Besylate 10 Mg Tablet) 10 mg PO DAILY [facility]; Protocol Last Admin: 06/02/23 10:57 Dose: 10 mg Ascorbic Acid (Ascorbic Acid 500 Mg Tablet) 500 mg PO BID [facility] Last Admin: 06/02/23 10:58 Dose: 500 mg Aspirin (Aspirin Enteric Coated 81 Mg Tablet.Dr) 81 mg PO DAILY [facility] Last Admin: 06/02/23 10:58 Dose: 81 mg Atorvastatin Calcium (Atorvastatin Calcium 10 Mg Tablet) 10 mg PO BEDTIME [facility] Last Admin: 06/01/23 20:52 Dose: 10 mg Bisacodyl (Bisacodyl 10 Mg Supp.Rect) 10 mg SC DAILY PRN PRN Reason: Constipation Bupropion HCl (Bupropion Hcl Xl 300 Mg Tab.Er.24h) 300 mg PO DAILY [facility] Last Admin: 06/02/23 10:57 Dose: 300 mg Carvedilol (Carvedilol 12.5 Mg Tablet) 12.5 mg PO BID [facility]; Protocol Last Admin: 06/02/23 10:58 Dose: 12.5 mg Dextrose (Dextrose 50 % 25 Gm/50 Ml Syringe) 25 gm IVPUSH Q15M PRN; Protocol PRN Reason: per Hypoglycemia Standing Ord. Doxycycline Monohydrate (Doxycycline Monohydrate 100 Mg Capsule) 100 mg PO BID [facility] Last Admin: 06/02/23 10:57 Dose: 100 mg Enoxaparin Sodium (Enoxaparin Sodium 30 Mg/0.3 Ml Syringe) 30 mg SUBCUT Q24H [facility] Last Admin: 06/02/23 10:59 Dose: 30 mg Ferrous Sulfate (Ferrous Sulfate 324 Mg Tablet.Dr) 324 mg PO Q2D [facility] Last Admin: 06/01/23 13:10 Dose: 324 mg Fluoxetine HCl (Fluoxetine Hcl 20 Mg Capsule) 40 mg PO DAILY [facility] Last Admin: 06/02/23 10:57 Dose: 40 mg Gabapentin (Gabapentin 100 Mg Capsule) 100 mg PO BID [facility] Last Admin: 06/02/23 10:56 Dose: 100 mg Glucose (Glucose Gel 15 Gm Gel..Gram.) 15 gm PO Q15M PRN; Protocol PRN Reason: per Hypoglycemia Standing Ord. Sodium Chloride (Sodium Chloride 0.45 %) 1,000 mls @ 150 mls/hr IVCONT .Q6H40M [facility] Last Infusion: 06/02/23 13:11 Dose: 150 mls/hr Insulin Glargine (Insulin Glargine,Hum.Rec.Anlog 100 Unit/Ml 10 Ml Vial) 15 unit SUBCUT BEDTIME [facility] Last Admin: 06/01/23 20:56 Dose: 15 unit Insulin Human Lispro (Insulin Lispro 100 Unit/Ml 3 Ml Vial) 0 unit SUBCUT QIDACHS [facility]; Protocol Last Admin: 06/02/23 11:44 Dose: Not Given Isosorbide Mononitrate (Isosorbide Mononitrate 60 Mg Tab.Er.24h) 60 mg PO DAILY [facility]; Protocol Last Admin: 06/02/23 10:58 Dose: 60 mg Lactulose (Lactulose 20 Gm/30 Ml Solution) 20 gm PO TID PRN PRN Reason: Constipation Latanoprost (Latanoprost 0.005 % Ophth Edna 2.5 Ml Drops) 1 drop EYE-BOTH BEDTIME [facility] Last Admin: 06/01/23 23:36 Dose: Not Given Lorazepam (Lorazepam 0.5 Mg Tablet) 0.5 mg PO BID PRN PRN Reason: Anxiety Last Admin: 06/01/23 13:11 Dose: 0.5 mg Melatonin (Melatonin 3 Mg Tablet) 3 mg PO BEDTIME [facility] Last Admin: 06/01/23 20:52 Dose: 3 mg Multivitamins/Vitamin C (Multivitamin Tablet) 1 tab PO DAILY [facility] Last Admin: 06/02/23 10:58 Dose: 1 tab Omeprazole (Omeprazole 20 Mg Capsule.Dr) 20 mg PO DAILY@0630 [facility] Last Admin: 06/02/23 06:02 Dose: 20 mg Oxycodone HCl (Oxycodone Hcl Immed Release 5 Mg Tablet) 10 mg PO Q4H PRN PRN Reason: Pain, Severe (Pain Scale 7-10) Polyethylene Glycol (Polyethylene Glycol 3350 17 Gm Powd.Pack) 17 gm PO DAILY [facility] Last Admin: 06/02/23 10:57 Dose: 17 gm Senna (Sennosides 8.6 Mg Tablet) 17.2 mg PO BID [facility] Last Admin: 06/02/23 10:57 Dose: 17.2 mg Sodium Chloride (0.9 % Sodium Chloride Flush 3 Ml Syringe) [facility] Last Admin: 06/02/23 10:04 Dose: Not Given Tamsulosin HCl (Tamsulosin Hcl 0.4 Mg Capsule) 0.4 mg PO BEDTIME [facility] Last Admin: 06/01/23 20:52 Dose: 0.4 mg Tizanidine HCl (Tizanidine Hcl 4 Mg Tablet) 2 mg PO Q8H PRN PRN Reason: MUSCLE SPASMS Last Admin: 06/01/23 17:16 Dose: 2 mg Trazodone HCl (Trazodone Hcl 100 Mg Tablet) 300 mg PO BEDTIME [facility] Last Admin: 06/01/23 20:53 Dose: 300 mg Vitamin D (Cholecalciferol (Vitamin D3) 25 Mcg Tablet) 25 mcg PO DAILY [facility] Last Admin: 06/02/23 11:07 Dose: 25 mcg Zinc Sulfate (Zinc Sulfate 220 Mg Capsule) 220 mg PO DAILY [facility] Last Admin: 06/02/23 10:58 Dose: 220 mg <Keshia Nagy PA-C - Last Filed: 06/02/23 13:54> Home medications: Home Medications Medication Instructions Recorded Confirmed Last Taken Type amiodarone 200 mg tablet 200 mg PO DAILY 06/01/23 06/01/23 Unknown History amlodipine 10 mg tablet 10 mg PO DAILY 06/01/23 06/01/23 Unknown History ascorbic acid (vitamin C) 500 mg 500 mg PO BID 06/01/23 06/01/23 Unknown History tablet aspirin 81 mg tablet,delayed 81 mg PO DAILY 06/01/23 06/01/23 Unknown History release atorvastatin 10 mg tablet 10 mg PO BEDTIME 06/01/23 06/01/23 Unknown History bisacodyl 10 mg rectal suppository 10 mg SC DAILY PRN Constipation 06/01/23 06/01/23 Unknown History bupropion HCl 300 mg 24 hr tablet, 300 mg PO DAILY 06/01/23 06/01/23 Unknown History extended release carvedilol 12.5 mg tablet 12.5 mg PO BID 06/01/23 06/01/23 Unknown History cholecalciferol (vitamin D3) 25 25 mcg PO DAILY 06/01/23 06/01/23 Unknown History mcg (1,000 unit) tablet doxycycline hyclate 100 mg tablet 100 mg PO BID 06/01/23 06/01/23 Unknown History ferrous sulfate 325 mg (65 mg 325 mg PO Q2D 06/01/23 06/01/23 Unknown History iron) tablet fluoxetine 40 mg capsule 40 mg PO DAILY 06/01/23 06/01/23 Unknown History gabapentin 100 mg capsule 100 mg PO BID 06/01/23 06/01/23 Unknown History insulin glargine 100 unit/mL (3 15 unit subcut BEDTIME 06/01/23 06/01/23 Unknown History mL) subcutaneous pen (Lantus Solostar U-100 Insulin) insulin lispro 100 unit/mL 1 sliding scale dose subcut 06/01/23 06/01/23 Unknown History subcutaneous solution [facility] isosorbide mononitrate 60 mg 60 mg PO DAILY 06/01/23 06/01/23 Unknown History tablet,extended release 24 hr lactulose 10 gram/15 mL oral 20 g PO TID PRN Constipation 06/01/23 06/01/23 Unknown History solution latanoprost 0.005 % eye drops 1 drp ophthalmic (eye) BEDTIME 06/01/23 06/01/23 Unknown History lorazepam 0.5 mg tablet 0.5 mg PO BID PRN Anxiety 06/01/23 06/01/23 Unknown History melatonin 3 mg tablet 3 mg PO BEDTIME 06/01/23 06/01/23 Unknown History multivitamin 1 tab PO DAILY 06/01/23 06/01/23 Unknown History oxycodone 10 mg tablet 10 mg PO Q4H PRN Pain 06/01/23 06/01/23 Unknown History pantoprazole 40 mg tablet,delayed 40 mg PO DAILY 06/01/23 06/01/23 Unknown History release polyethylene glycol 3350 17 17 g PO DAILY 06/01/23 06/01/23 Unknown History gram/dose oral powder sennosides 8.6 mg tablet (senna) 17.2 mg PO BID 06/01/23 06/01/23 Unknown History tamsulosin 0.4 mg capsule 0.4 mg PO BEDTIME 06/01/23 06/01/23 Unknown History tizanidine 2 mg tablet 2 mg PO Q8H PRN MUSCLE SPASMS 06/01/23 06/01/23 Unknown History trazodone 300 mg tablet 300 mg PO BEDTIME 06/01/23 06/01/23 Unknown History zinc acetate 50 mg (zinc) capsule 50 mg PO DAILY 06/01/23 06/01/23 Unknown History <Keshia Nagy PA-C - Last Filed: 06/02/23 13:54> Physical Exam 2 Vital Signs: Vital Signs: Last Vital Signs Temp 97.6 F 06/02/23 08:37 Pulse 50 06/02/23 08:37 Resp 20 06/02/23 08:37 BP 148/76 H 06/02/23 08:37 Pulse Ox 98 06/02/23 08:37 O2 Del Method Nasal Cannula 06/02/23 08:37 O2 Flow Rate 2 06/02/23 08:37 Oxygen Flow Rate 3 05/31/23 20:22 BMI result Body Mass Index 26.6 <Keshia Nagy PA-C - Last Filed: 06/02/23 13:54> Const: General: comfortable, no acute distress and alert <Keshia EllerSAMM rizviAd Rock Last Filed: 06/02/23 13:54> Orientation/consciousness: patient oriented x3 <Keshia Keanedeau SANDRA Rock Last Filed: 06/02/23 13:54> Resp: Effort & Inspection: normal respiratory effort <Keshia Keaneasya SANDRA [place] Filed: 06/02/23 13:54> Cardio: Rate: regular rate <Keshia Nagy SANDRA [place] Filed: 06/02/23 13:54> GI: Other: corpulent abdomen <Keshia Ellerbelkys SANDRA Cantu Filed: 06/02/23 13:54> Inspection: No distended and No scar <Keshia Keaneasya SANDRA [place] Filed: 06/02/23 13:54> Palpation (GI): Soft to palpation, Tenderness to palpation present (GI) in the RUQ (marked ) and Fuller's sign positive, no guarding and not rigid < Keshia Keanedeau SANDRA Rock Last Filed: 06/02/23 13:54> Skin: General skin exam: no rashes or lesions noted and no jaundice < Keshia Ellerbelkys SANDRA Rock Last Filed: 06/02/23 13:54> Neuro: General: patient oriented x3 <Keshia Keaneasya SANDRA Rock Last Filed: 06/02/23 13:54> Results Labs Result diagrams: 05/31/23 20:51 06/02/23 10:10 <Keshia Keaneasya SANDRA Rock Last Filed: 06/02/23 13:54> Labs: Abnormal lab results 06/01/23 06/01/23 06/02/23 Range/Units 16:11 20:42 10:10 Potassium 5.5 H (3.3-5.1) mmol/L Chloride 109 H (96-108) mmol/L Anion Gap 11 L (12-20) BUN 66 H (9-16) mg/dL Creatinine 3.41 H (0.5-1.4) mg/dL POC Glucose 123 H 133 H (60-115) mg/dL BMP 06/02/23 10:10 Sodium 141 Potassium 5.5 H Chloride 109 H Carbon Dioxide 27 BUN 66 H Creatinine 3.41 H Calcium 9.0 Urine 05/31/23 Range/Units 23:33 Urine Color Yellow Urine Appearance Clear Urine pH 5.0 (5.0-9.0) Ur Specific [place] 1.010 (1.005-1.025) Urine Protein 300 (3+) H (Neg-Trace) mg/dL Urine Glucose (UA) Negative (Negative) mg/dL All other labs normal. <SANDRA Arcos Last Filed: 06/02/23 13:54> Imaging Abdomen CT scan report/results: report reviewed and image reviewed <SANDRA Arcos [place] Filed: 06/02/23 13:54> Assessment and Plan (1) Cholelithiasis: Status: Acute <SANDRA Arcos Pepe Filed: 06/02/23 13:54> (2) Acute cholecystitis: Status: Acute <SANDRA Arcos Last Filed: 06/02/23 13:54> 63 year old male with multiple medical comorbidities presenting with RUQ abd pain, nausea and decreased PO intake with marked RUQ tenderness and positive fuller sign on exam with CT demonstrating distended gallbladder with multiple gallstones. Although the imaging does not suggest cholecystitis, the gallbladder is markedly distended and he is very tender in the RUQ on exam, all suggestive of acute cholecystitis. Would recommend starting IV zosyn with plan for cholecystostomy tube tomorrow (ate lunch today) as he is high risk for surgery given all his significant medical comorbidities. Patient is comfortable with plan. <SANDRA Arcos Last Filed: 06/02/23 13:54> 63 year old male with multiple medical comorbidities presenting with RUQ abd pain, nausea and decreased PO intake with marked RUQ tenderness and positive fuller sign on exam with CT demonstrating distended gallbladder with multiple gallstones. Although the imaging does not suggest cholecystitis, the gallbladder is markedly distended and he is very tender in the RUQ on exam, all suggestive of acute cholecystitis. Would recommend starting IV zosyn with plan for cholecystostomy tube tomorrow (ate lunch today) as he is high risk for surgery given all his significant medical comorbidities. Patient is comfortable with plan. Pt most likely with biliary colic but not certain of cholecystitis - diabetic gallbladders are not always revealing degree of disease - recommend HIDA scan but treat medically with low fat diet and iv antibx before getting júnior-tube. Pt would rather not have tube for sure is concerned about surgery but understands risks and benefits and wishes to proceed this way for now knowing that plan can change based on clinical course and tests. <Chante Tineo MD - Last Filed: 06/02/23 19:37> Procedures Date of Service Date of Service: 06/02/23 <Keshia Nagy PA-C - Last Filed: 06/02/23 13:54> 06/02/23 <Chante Tineo MD - Last Filed: 06/02/23 19:37>
[2023-06-02 15:20] VITALS: BP 148/72; PULSE 50; RESP 22; TEMP 36.6; O2SAT 96
[2023-06-02] MEDS: oxyCODONE HCl Immed Release 5 MG TABLET 10 MG PO ×2 (15:20→21:36)
[2023-06-02 16:07] LABS: Glucose, Whole Blood 124 mg/dL (60-115)
[2023-06-02] MEDS: Sodium Zirconium Cyclosilicate 5 GM POWD.PACK PO (17:05)
[2023-06-02 19:04] VITALS: BP 140/70; PULSE 50; RESP 20; TEMP 36.6; O2SAT 96
[2023-06-02 20:25] LABS: Glucose, Whole Blood 109 mg/dL (60-115)
[2023-06-02] MEDS: traZODone HCL 100 MG TABLET 300 MG PO (21:36)
[2023-06-02] MEDS: Tamsulosin HCL 0.4 MG CAPSULE PO (21:37)
[2023-06-02] MEDS: Melatonin 3 MG TABLET PO (21:37)
[2023-06-02] MEDS: Atorvastatin Calcium 10 MG TABLET PO (21:37)
[2023-06-02] MEDS: cefTRIAXone sodium 1 GM in 0.9 % Sodium Chloride 50 ML IV (21:38)
[2023-06-02] MEDS: metroNIDAZOLE/NS 500 MG/100 ML PIGGYBACK 100 MG IV (21:38)
[2023-06-03] MEDS: 0.9 % Sodium Chloride Flush 3 ML SYRINGE IVFLUSH ×4 (00:13→23:26)
[2023-06-03] MEDS: TiZANidine HCL 4 MG TABLET 2 MG PO ×2 (00:18→12:24)
[2023-06-03 04:00] VITALS: BP 154/83; PULSE 57; RESP 16; TEMP 36.3; O2SAT 98
[2023-06-03] MEDS: Omeprazole 20 MG CAPSULE.DR PO (05:47)
[2023-06-03] MEDS: oxyCODONE HCl Immed Release 5 MG TABLET 10 MG PO (07:01)
[2023-06-03 07:22] VITALS: BP 156/68; PULSE 50; RESP 20; TEMP 36.4; O2SAT 97
[2023-06-03 07:35] LABS: Glucose, Whole Blood 82 mg/dL (60-115)
--- NOTE | 2023-06-03 08:04 | P.PNGS_ITS ---
Subjective Subjective Date of Service: 06/05/23 Interval history: not very communicative but does state he has some tenderness on the RUQ no documented fever Physical Exam 2 Vital Signs: Vital Signs: Last Vital Signs Temp 97.6 F 06/03/23 07:22 Pulse 50 06/03/23 07:22 Resp 20 06/03/23 07:22 BP 156/68 H 06/03/23 07:22 Pulse Ox 97 06/03/23 07:22 O2 Del Method Nasal Cannula 06/03/23 07:22 O2 Flow Rate 3 06/03/23 07:22 Oxygen Flow Rate 3 05/31/23 20:22 BMI result Body Mass Index 26.6 Const: Other: appears mildly SOB, drowsy, not very communicative Resp: Other: some SOB Cardio: Rhythm: regular rhythm GI: Palpation (GI): Soft to palpation, not firm, Tenderness to palpation present (GI) (some tenderness to deep palpation on RUQ) and no guarding Objective Data Active Medications Amiodarone HCl (Amiodarone Hcl 200 Mg Tablet) 200 mg PO DAILY [facility] Last Admin: 06/02/23 10:58 Dose: 200 mg Documented By: TATIANA Amlodipine Besylate (Amlodipine Besylate 10 Mg Tablet) 10 mg PO DAILY [facility]; Protocol Last Admin: 06/02/23 10:57 Dose: 10 mg Documented By: TATIANA Ascorbic Acid (Ascorbic Acid 500 Mg Tablet) 500 mg PO BID [facility] Last Admin: 06/02/23 21:36 Dose: 500 mg Documented By: MAN Aspirin (Aspirin Enteric Coated 81 Mg Tablet.Dr) 81 mg PO DAILY [facility] Last Admin: 06/02/23 10:58 Dose: 81 mg Documented By: TATIANA Atorvastatin Calcium (Atorvastatin Calcium 10 Mg Tablet) 10 mg PO BEDTIME [facility] Last Admin: 06/02/23 21:37 Dose: 10 mg Documented By: MAN Bisacodyl (Bisacodyl 10 Mg Supp.Rect) 10 mg [place] DAILY PRN PRN Reason: Constipation Bupropion HCl (Bupropion Hcl Xl 300 Mg Tab.Er.24h) 300 mg PO DAILY [facility] Last Admin: 06/02/23 10:57 Dose: 300 mg Documented By: TATIANA Carvedilol (Carvedilol 12.5 Mg Tablet) 12.5 mg PO BID [facility]; Protocol Last Admin: 06/02/23 21:37 Dose: 12.5 mg Documented By: MAN Dextrose (Dextrose 50 % 25 Gm/50 Ml Syringe) 25 gm IVPUSH Q15M PRN; Protocol PRN Reason: per Hypoglycemia Standing Ord. Doxycycline Monohydrate (Doxycycline Monohydrate 100 Mg Capsule) 100 mg PO BID [facility] Last Admin: 06/02/23 21:37 Dose: 100 mg Documented By: MAN Enoxaparin Sodium (Enoxaparin Sodium 30 Mg/0.3 Ml Syringe) 30 mg SUBCUT Q24H [facility] Last Admin: 06/02/23 10:59 Dose: 30 mg Documented By: TATIANA Ferrous Sulfate (Ferrous Sulfate 324 Mg Tablet.Dr) 324 mg PO Q2D [facility] Last Admin: 06/01/23 13:10 Dose: 324 mg Documented By: GREYSON Fluoxetine HCl (Fluoxetine Hcl 20 Mg Capsule) 40 mg PO DAILY [facility] Last Admin: 06/02/23 10:57 Dose: 40 mg Documented By: TATIANA Gabapentin (Gabapentin 100 Mg Capsule) 100 mg PO BID [facility] Last Admin: 06/02/23 21:37 Dose: 100 mg Documented By: MAN Glucose (Glucose Gel 15 Gm Gel..Gram.) 15 gm PO Q15M PRN; Protocol PRN Reason: per Hypoglycemia Standing Ord. Ceftriaxone Sodium 1 gm/ (Sodium Chloride) 50 mls @ 100 mls/hr IV Q24H [facility] Last Infusion: 06/02/23 22:12 Dose: Infused Documented By: MAN Metronidazole (Flagyl) 500 mg in 100 mls @ 100 mls/hr IV Q12H [facility] Last Infusion: 06/02/23 23:15 Dose: Infused Documented By: MAN Insulin Human Lispro (Insulin Lispro 100 Unit/Ml 3 Ml Vial) 0 unit SUBCUT QIDACHS [facility]; Protocol Last Admin: 06/03/23 07:38 Dose: Not Given Documented By: BERNA Non-Admin Reason: No Insulin Coverage Isosorbide Mononitrate (Isosorbide Mononitrate 60 Mg Tab.Er.24h) 60 mg PO DAILY [facility]; Protocol Last Admin: 06/02/23 10:58 Dose: 60 mg Documented By: TATIANA Lactulose (Lactulose 20 Gm/30 Ml Solution) 20 gm PO TID PRN PRN Reason: Constipation Latanoprost (Latanoprost 0.005 % Ophth Edna 2.5 Ml Drops) 1 drop EYE-BOTH BEDTIME [facility] Last Admin: 06/02/23 22:04 Dose: Not Given Documented By: MAN Non-Admin Reason: NOT AVAILABLE, WILL CALL PHARMACY Lorazepam (Lorazepam 0.5 Mg Tablet) 0.5 mg PO BID PRN PRN Reason: Anxiety Last Admin: 06/01/23 13:11 Dose: 0.5 mg Documented By: GREYSON Melatonin (Melatonin 3 Mg Tablet) 3 mg PO BEDTIME [facility] Last Admin: 06/02/23 21:37 Dose: 3 mg Documented By: MAN Multivitamins/Vitamin C (Multivitamin Tablet) 1 tab PO DAILY [facility] Last Admin: 06/02/23 10:58 Dose: 1 tab Documented By: TATIANA Omeprazole (Omeprazole 20 Mg Capsule.Dr) 20 mg PO DAILY@0630 [facility] Last Admin: 06/03/23 05:47 Dose: 20 mg Documented By: MARLEEN Oxycodone HCl (Oxycodone Hcl Immed Release 5 Mg Tablet) 10 mg PO Q4H PRN PRN Reason: Pain, Severe (Pain Scale 7-10) Last Admin: 06/03/23 07:01 Dose: 10 mg Documented By: JUJU Polyethylene Glycol (Polyethylene Glycol 3350 17 Gm Powd.Pack) 17 gm PO DAILY [facility] Last Admin: 06/02/23 10:57 Dose: 17 gm Documented By: TATIANA Senna (Sennosides 8.6 Mg Tablet) 17.2 mg PO BID [facility] Last Admin: 06/02/23 21:36 Dose: 17.2 mg Documented By: MAN Sodium Chloride (0.9 % Sodium Chloride Flush 3 Ml Syringe) 3 ml IVFLUSH [facility] Last Admin: 06/03/23 00:13 Dose: 3 ml Documented By: MARLEEN Tamsulosin HCl (Tamsulosin Hcl 0.4 Mg Capsule) 0.4 mg PO BEDTIME [facility] Last Admin: 06/02/23 21:37 Dose: 0.4 mg Documented By: MAN Tizanidine HCl (Tizanidine Hcl 4 Mg Tablet) 2 mg PO Q8H PRN PRN Reason: MUSCLE SPASMS Last Admin: 06/03/23 00:18 Dose: 2 mg Documented By: ODRISM Trazodone HCl (Trazodone Hcl 100 Mg Tablet) 300 mg PO BEDTIME [facility] Last Admin: 06/02/23 21:36 Dose: 300 mg Documented By: MAN Vitamin D (Cholecalciferol (Vitamin D3) 25 Mcg Tablet) 25 mcg PO DAILY [facility] Last Admin: 06/02/23 11:07 Dose: 25 mcg Documented By: TATIANA Zinc Sulfate (Zinc Sulfate 220 Mg Capsule) 220 mg PO DAILY [facility] Last Admin: 06/02/23 10:58 Dose: 220 mg Documented By: TATIANA Labs 06/03/23 13:19 06/05/23 06:16 Labs: Laboratory Results - last 24 hr 06/02/23 06/02/23 06/02/23 10:10 11:22 16:02 Anion Gap 11 L Estim Creat Clear Calc 21.4 Estimated GFR 18 POC Glucose 92 124 H Random Glucose 93 Calcium 9.0 06/02/23 06/03/23 20:21 07:26 Anion Gap Estim Creat Clear Calc Estimated GFR POC Glucose 109 82 Random Glucose Calcium Procedures Date of Service Date of Service: 06/05/23 Progress Note: A&P Assessment and plan (1) Cholelithiasis: Status: Acute Assessment and Plan: has multiple medical problems no leukocytosis buit seems to be tender on RUQ GB very distended although without other signs of cholecystitis consider HIDA scan, then tube cholecystostomy if positive for cholecystitis pt otherwise does not seem to be a feasible surgical candidate - multiple comorbid conditions Time Spent With Patient Time: Total time managing care of this patient today ____ minutes. Quality Stroke Does the patient have a stroke diagnosis?: No VTE Prior VTE?: No VTE Risk Level:: Medical - moderate - high VTE Device Contraindication: Treatment Not Indicated VTE Drug Contraindication: N/A - Med Ordered
--- NOTE | 2023-06-03 09:39 | P.PNIM_ITS ---
Subjective Subjective Date of Service: 06/03/23 Interval History: f/u on abdominal pain with concern for cholecystitis given ruq tenderness interval still c/o abd pain, no fever, Physical Exam 2 Vital Signs: Vital Signs: Last Vital Signs Temp 97.6 F 06/03/23 07:22 Pulse 50 06/03/23 07:22 Resp 20 06/03/23 07:22 BP 156/68 H 06/03/23 07:22 Pulse Ox 97 06/03/23 07:22 O2 Del Method Nasal Cannula 06/03/23 07:22 O2 Flow Rate 3 06/03/23 07:22 Oxygen Flow Rate 3 05/31/23 20:22 BMI result Body Mass Index 26.6 Const: Other: General: AO X 3, no acute distress Resp: CTA bilateral CVS: S1,S2,RRR GI: +BS, ruq tenderness Skin: right heel pressure ulcer, present on admission Neuro: motor grossly intact Psych: appropriate affect Objective Data Active Medications Amiodarone HCl (Amiodarone Hcl 200 Mg Tablet) 200 mg PO DAILY [facility] Last Admin: 06/02/23 10:58 Dose: 200 mg Documented By: TATIANA Amlodipine Besylate (Amlodipine Besylate 10 Mg Tablet) 10 mg PO DAILY [facility]; Protocol Last Admin: 06/02/23 10:57 Dose: 10 mg Documented By: TATIANA Ascorbic Acid (Ascorbic Acid 500 Mg Tablet) 500 mg PO BID [facility] Last Admin: 06/02/23 21:36 Dose: 500 mg Documented By: MAN Aspirin (Aspirin Enteric Coated 81 Mg Tablet.Dr) 81 mg PO DAILY [facility] Last Admin: 06/02/23 10:58 Dose: 81 mg Documented By: TATIANA Atorvastatin Calcium (Atorvastatin Calcium 10 Mg Tablet) 10 mg PO BEDTIME [facility] Last Admin: 06/02/23 21:37 Dose: 10 mg Documented By: MAN Bisacodyl (Bisacodyl 10 Mg Supp.Rect) 10 mg [place] DAILY PRN PRN Reason: Constipation Bupropion HCl (Bupropion Hcl Xl 300 Mg Tab.Er.24h) 300 mg PO DAILY [facility] Last Admin: 06/02/23 10:57 Dose: 300 mg Documented By: TATIANA Carvedilol (Carvedilol 12.5 Mg Tablet) 12.5 mg PO BID [facility]; Protocol Last Admin: 06/02/23 21:37 Dose: 12.5 mg Documented By: MAN Dextrose (Dextrose 50 % 25 Gm/50 Ml Syringe) 25 gm IVPUSH Q15M PRN; Protocol PRN Reason: per Hypoglycemia Standing Ord. Doxycycline Monohydrate (Doxycycline Monohydrate 100 Mg Capsule) 100 mg PO BID [facility] Last Admin: 06/02/23 21:37 Dose: 100 mg Documented By: MAN Enoxaparin Sodium (Enoxaparin Sodium 30 Mg/0.3 Ml Syringe) 30 mg SUBCUT Q24H [facility] Last Admin: 06/02/23 10:59 Dose: 30 mg Documented By: TATIANA Ferrous Sulfate (Ferrous Sulfate 324 Mg Tablet.Dr) 324 mg PO Q2D [facility] Last Admin: 06/01/23 13:10 Dose: 324 mg Documented By: GREYSON Fluoxetine HCl (Fluoxetine Hcl 20 Mg Capsule) 40 mg PO DAILY [facility] Last Admin: 06/02/23 10:57 Dose: 40 mg Documented By: TATIANA Gabapentin (Gabapentin 100 Mg Capsule) 100 mg PO BID [facility] Last Admin: 06/02/23 21:37 Dose: 100 mg Documented By: MAN Glucose (Glucose Gel 15 Gm Gel..Gram.) 15 gm PO Q15M PRN; Protocol PRN Reason: per Hypoglycemia Standing Ord. Ceftriaxone Sodium 1 gm/ (Sodium Chloride) 50 mls @ 100 mls/hr IV Q24H [facility] Last Infusion: 06/02/23 22:12 Dose: Infused Documented By: MAN Metronidazole (Flagyl) 500 mg in 100 mls @ 100 mls/hr IV Q12H [facility] Last Infusion: 06/02/23 23:15 Dose: Infused Documented By: MAN Insulin Human Lispro (Insulin Lispro 100 Unit/Ml 3 Ml Vial) 0 unit SUBCUT QIDACHS [facility]; Protocol Last Admin: 06/03/23 07:38 Dose: Not Given Documented By: BERNA Non-Admin Reason: No Insulin Coverage Isosorbide Mononitrate (Isosorbide Mononitrate 60 Mg Tab.Er.24h) 60 mg PO DAILY [facility]; Protocol Last Admin: 06/02/23 10:58 Dose: 60 mg Documented By: TATIANA Lactulose (Lactulose 20 Gm/30 Ml Solution) 20 gm PO TID PRN PRN Reason: Constipation Latanoprost (Latanoprost 0.005 % Ophth Edna 2.5 Ml Drops) 1 drop EYE-BOTH BEDTIME [facility] Last Admin: 06/02/23 22:04 Dose: Not Given Documented By: MAN Non-Admin Reason: NOT AVAILABLE, WILL CALL PHARMACY Lorazepam (Lorazepam 0.5 Mg Tablet) 0.5 mg PO BID PRN PRN Reason: Anxiety Last Admin: 06/01/23 13:11 Dose: 0.5 mg Documented By: GREYSON Melatonin (Melatonin 3 Mg Tablet) 3 mg PO BEDTIME [facility] Last Admin: 06/02/23 21:37 Dose: 3 mg Documented By: MAN Multivitamins/Vitamin C (Multivitamin Tablet) 1 tab PO DAILY [facility] Last Admin: 06/02/23 10:58 Dose: 1 tab Documented By: TATIANA Omeprazole (Omeprazole 20 Mg Capsule.Dr) 20 mg PO DAILY@0630 [facility] Last Admin: 06/03/23 05:47 Dose: 20 mg Documented By: MARLEEN Oxycodone HCl (Oxycodone Hcl Immed Release 5 Mg Tablet) 10 mg PO Q4H PRN PRN Reason: Pain, Severe (Pain Scale 7-10) Last Admin: 06/03/23 07:01 Dose: 10 mg Documented By: JUJU Polyethylene Glycol (Polyethylene Glycol 3350 17 Gm Powd.Pack) 17 gm PO DAILY [facility] Last Admin: 06/02/23 10:57 Dose: 17 gm Documented By: TATIANA Senna (Sennosides 8.6 Mg Tablet) 17.2 mg PO BID [facility] Last Admin: 06/02/23 21:36 Dose: 17.2 mg Documented By: MAN Sodium Chloride (0.9 % Sodium Chloride Flush 3 Ml Syringe) [facility] Last Admin: 06/03/23 00:13 Dose: 3 ml Documented By: MARLEEN Tamsulosin HCl (Tamsulosin Hcl 0.4 Mg Capsule) 0.4 mg PO BEDTIME [facility] Last Admin: 06/02/23 21:37 Dose: 0.4 mg Documented By: MAN Tizanidine HCl (Tizanidine Hcl 4 Mg Tablet) 2 mg PO Q8H PRN PRN Reason: MUSCLE SPASMS Last Admin: 06/03/23 00:18 Dose: 2 mg Documented By: ODRISRodrick Trazodone HCl (Trazodone Hcl 100 Mg Tablet) 300 mg PO BEDTIME [facility] Last Admin: 06/02/23 21:36 Dose: 300 mg Documented By: MAN Vitamin D (Cholecalciferol (Vitamin D3) 25 Mcg Tablet) 25 mcg PO DAILY [facility] Last Admin: 06/02/23 11:07 Dose: 25 mcg Documented By: TATIANA Zinc Sulfate (Zinc Sulfate 220 Mg Capsule) 220 mg PO DAILY [facility] Last Admin: 06/02/23 10:58 Dose: 220 mg Documented By: TATIANA Labs 05/31/23 20:51 06/02/23 10:10 Labs: Laboratory Results - last 24 hr 06/02/23 06/02/23 06/02/23 10:10 11:22 16:02 Anion Gap 11 L Estim Creat Clear Calc 21.4 Estimated GFR 18 POC Glucose 92 124 H Random Glucose 93 Calcium 9.0 06/02/23 06/03/23 20:21 07:26 Anion Gap Estim Creat Clear Calc Estimated GFR POC Glucose 109 82 Random Glucose Calcium Assessment and Plan (1) Dehydration: Status: Acute Plan 63-year-old male with PMH of nonischemic cardiomyopathy, combined systolic and diastolic 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 work up with mild hyperkalemia, gallstone but no cholecystitis Plan: Abdominal pain--imagin (CT and US), gallstone but no cholecystitis, no pain at the moment, but there is still concern about cholecystitis and therefore started on empric Abx (Ceftriaxone +Flagyl), following surgery recommendation, HIDA scan for further eval CKD 4, stable Hyperkalemia--treated with Lokelma, repeat lab today Diabetes--continue, SSI, hold Lantus while NPO BPH--Flomax GERD --PPI HTN--continue Coreg, amlodipine PAF, nonischemic cardiomyopathy s/p AICD, continue amio CAD--ASA, BB, Statin Recent foot ulcer--continue Doxy DVT prophylaxis--Lovenox Ful code need for inpt: work up and treatment for acute cholecysitis Quality Stroke Does the patient have a stroke diagnosis?: No VTE Prior VTE?: No VTE Risk Level:: Medical - moderate - high VTE Device Contraindication: Treatment Not Indicated VTE Drug Contraindication: N/A - Med Ordered
[2023-06-03] MEDS: Zinc Sulfate 220 MG CAPSULE PO (12:10)
[2023-06-03] MEDS: Isosorbide Mononitrate 60 MG TAB.ER.24H PO (12:10)
[2023-06-03] MEDS: FLUoxetine HCl 20 MG CAPSULE 40 MG PO (12:10)
[2023-06-03] MEDS: buPROPion HCl XL 300 MG TAB.ER.24H PO (12:11)
[2023-06-03] MEDS: Multivitamin TABLET 1 TAB PO (12:11)
[2023-06-03] MEDS: Doxycycline Monohydrate 100 MG CAPSULE PO ×2 (12:11→20:36)
[2023-06-03] MEDS: carvediloL 12.5 MG TABLET PO ×2 (12:11→20:36)
[2023-06-03] MEDS: Aspirin Enteric Coated 81 MG TABLET.DR PO (12:11)
[2023-06-03] MEDS: Sennosides 8.6 MG TABLET 17.2 MG PO (12:11)
[2023-06-03] MEDS: Gabapentin 100 MG CAPSULE PO ×2 (12:11→20:36)
[2023-06-03] MEDS: Amiodarone HCL 200 MG TABLET PO (12:12)
[2023-06-03] MEDS: Ascorbic Acid 500 MG TABLET PO ×2 (12:12→20:36)
[2023-06-03] MEDS: amLODIPine Besylate 10 MG TABLET PO (12:12)
[2023-06-03] MEDS: Cholecalciferol (Vitamin D3) 25 MCG TABLET PO (12:12)
[2023-06-03] MEDS: Ferrous Sulfate 324 MG TABLET.DR PO (12:26)
--- NOTE | 2023-06-03 13:34 | MHC.CM.PN ---
per rounds pt is not medically ready for dc dc plan remains return to [facility]
[2023-06-03 13:46] LABS: Hematocrit 32.8 % (42.0-52.0); Hemoglobin 10.3 g/dl (14.0-18.0); Mean Corpuscular HGB Conc 31.4 g/dl (31.0-36.0); Mean Corpuscular Hemoglobin 30.7 pg (27.0-33.0); Mean Corpuscular Volume 97.6 fL (80.0-98.0); Mean Platelet Volume 10.5 fL (9.4-12.4); Red Blood Count 3.36 X10*6/uL (4.60-5.80); Red Cell Distribution Width 13.7 % (11.0-16.0)
[2023-06-03 14:08] LABS: Anion Gap 11 (12-20); Blood Urea Nitrogen 64 mg/dL (9-16); Calcium 9.2 mg/dL (8.4-10.2); Carbon Dioxide 26 mmol/L (22-29); Chloride 109 mmol/L (96-108); Creatinine Clr Calc Pharmacy 20.5; Estimated Glomerular Filt Rate 17; Glucose Random 104 mg/dL (60-115); Potassium 5.4 mmol/L (3.3-5.1); Sodium 141 mmol/L (135-145)
[2023-06-03 14:14] LABS: Platelet Count 85 X10*3/uL (160-400)
--- NOTE | 2023-06-03 14:22 | PM.EVENT ---
Event Note Date of Service: 06/03/23 Event Note: I have reviewed his HIDA scan Cystic duct is patent - no cholecystitis Poor ejection fraction This is likely secondary to his overall debilitated state, and multiple acute conditions We can try to feed him as this may help stimulate gallbladder contraction Would hold off on cholecystostomy tube at this time Exam otherwise remains benign Patient a poor surgical candidate Time Spent With Patient Time: Total time managing care of this patient today ____ minutes.
[2023-06-03 15:00] VITALS: BP 142/73; PULSE 50; RESP 20; TEMP 36.4; O2SAT 95
[2023-06-03 19:46] VITALS: BP 179/79; PULSE 52; RESP 19; TEMP 36.6; O2SAT 94
[2023-06-03] MEDS: Melatonin 3 MG TABLET PO (20:36)
[2023-06-03] MEDS: Tamsulosin HCL 0.4 MG CAPSULE PO (20:36)
[2023-06-03] MEDS: traZODone HCL 100 MG TABLET 300 MG PO (20:36)
[2023-06-03] MEDS: Atorvastatin Calcium 10 MG TABLET PO (20:36)
[2023-06-03] MEDS: Latanoprost 0.005 % Ophth Sol 2.5 ML DROPS 1 DROP EYE-BOTH (20:38)
[2023-06-04 04:00] VITALS: BP 140/68; PULSE 54; RESP 19; TEMP 36.2; O2SAT 95
[2023-06-04] MEDS: Omeprazole 20 MG CAPSULE.DR PO (05:40)
[2023-06-04 07:14] VITALS: BP 170/76; PULSE 51; RESP 18; TEMP 36.1; O2SAT 97
[2023-06-04] MEDS: amLODIPine Besylate 10 MG TABLET PO (09:47)
[2023-06-04] MEDS: FLUoxetine HCl 20 MG CAPSULE 40 MG PO (09:47)
[2023-06-04] MEDS: Aspirin Enteric Coated 81 MG TABLET.DR PO (09:47)
[2023-06-04] MEDS: Amiodarone HCL 200 MG TABLET PO (09:47)
[2023-06-04] MEDS: buPROPion HCl XL 300 MG TAB.ER.24H PO (09:47)
[2023-06-04] MEDS: Zinc Sulfate 220 MG CAPSULE PO (09:47)
[2023-06-04] MEDS: Ascorbic Acid 500 MG TABLET PO (09:48)
[2023-06-04] MEDS: Doxycycline Monohydrate 100 MG CAPSULE PO ×2 (09:48→22:02)
[2023-06-04] MEDS: carvediloL 12.5 MG TABLET PO (09:48)
[2023-06-04] MEDS: Isosorbide Mononitrate 60 MG TAB.ER.24H PO (09:48)
--- NOTE | 2023-06-04 09:58 | PM.DS ---
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 He was brought to the ED from [facility] with complaint of abdominal pain, dry heaving, and dizziness. ED work up CT show gallstone but no chololithiasis, potassium os 5.6 and Creatine 3.55 which is within his baseline, last creatione at [facility] was 4.1 on 05/16 when he was discharged. At the time of my evaluation, he complained of no abdominal and wa having no nausea or vomitting Hospital course: 63-year-old male with PMH of nonischemic cardiomyopathy, combined systolic and diastolic heart failure s/p ICD in place, paroxysmal atrial fibrillation, oxygen dependent COPD, CKD stage IV, type 2 diabetes mellitus, HTN, chronic opiate use, anemia, BPH, UTIs, recurrent UTI/stercoral colitis/infected left lower leg hematoma s/p I&D, recent hospitalization at [facility] from 05/14 to 05/16 for severe constipation that required desimpaction, here with decrease PO intake, dry heaving and dizzy.. work up with mild hyperkalemia, gallstone but no cholecystitis Plan: Abdominal pain--imagin (CT and US), gallstone but no cholecystitis, but do to diabetes and concern for possible cholecystitis, was started on antibiotics after surgical evaluation and then he subsequently underwent a HIDA scan which also show no cholecystitis and so antibiotics were discontinued. He is tolerating regular diet. CKD 4, Stable, recent creatine is 3.56, it was 4.1 at discharge at [facility] on 05/16 Hyperkalemia--treated with Lokelma, and potassium level is normal, he should have period lab check to make sure potassium is not going up and should avoid, high potassium foods, potassium is 5 today Diabetes--Was treated with sliding and Lantus when not npo, and back on full meals and should resume usual regimen BPH--Flomax GERD --PPI HTN--continue Coreg, amlodipine PAF, nonischemic cardiomyopathy s/p AICD, continue amio CAD--ASA, BB, Statin Recent foot ulcer--continue Doxy Time Attestation Discharge coordination time: Greater than 30 minutes Quality: Safe Use of Opioids Does Pt have an Active Cancer Diagnosis on the Problem List?: No Quality: Stroke Does the patient have a stroke diagnosis?: No Physical Exam Vital Signs: Vital Signs: Last Vital Signs Temp 97.0 F 06/04/23 07:14 Pulse 51 06/04/23 07:14 Resp 18 06/04/23 07:14 BP 170/76 H 06/04/23 07:14 Pulse Ox 97 06/04/23 07:14 O2 Del Method Nasal Cannula 06/04/23 07:14 O2 Flow Rate 2 06/04/23 07:14 Oxygen Flow Rate 3 05/31/23 20:22 BMI result Body Mass Index 26.6 Const: Other: General: AO X 3, no acute distress Resp: CTA bilateral CVS: S1,S2,RRR GI: +BS, no tenderness Skin: right heel pressure ulcer, present on admission Neuro: motor grossly intact Psych: appropriate affect DS: Data Data Completed and Pending Labs on day of discharge: Laboratory Results - last 24 hr 06/03/23 06/03/23 06/03/23 11:52 13:19 16:15 WBC 5.0 RBC 3.36 L Hgb 10.3 L Hct 32.8 L MCV 97.6 MCH 30.7 MCHC 31.4 RDW 13.7 Plt Count 85 L D MPV 10.5 Absolute Nucleated RBC 0.000 Nucleated RBC % (auto) 0.0 Sodium 141 Potassium 5.4 H Chloride 109 H Carbon Dioxide 26 Anion Gap 11 L BUN 64 H Creatinine 3.56 H Estim Creat Clear Calc 20.5 Estimated GFR 17 POC Glucose 89 116 H Random Glucose 104 Calcium 9.2 01/03/24 01/04/24 20:27 07:18 WBC RBC Hgb Hct MCV MCH MCHC RDW Plt Count MPV Absolute Nucleated RBC Nucleated RBC % (auto) Sodium Potassium Chloride Carbon Dioxide Anion Gap BUN Creatinine Estim Creat Clear Calc Estimated GFR POC Glucose 129 H 103 Random Glucose Calcium Discharge Plan Discharge Anticipated Discharge Date/Time: 06/05/23 10:35 Patient Disposition: er [facility] Discharge Diagnosis: Abdominal pain, gallstone, Referrals: [facility] [Outside] - 1 Week (TRANSFER FOR RESUMPTION OF [facility] C[facility]) Kb Brumfield MD [Physician] - Physician,Unknown J [Primary Care Provider] - 1 Week Discharge Medications: Continued multivitamin Tablet 1 tab PO DAILY fluoxetine 40 mg Capsule 40 mg PO DAILY latanoprost 0.005 % Drops 1 drp OPHTHALMIC (EYE) BEDTIME sennosides [senna] 8.6 mg Tablet 17.2 mg PO BID carvedilol 12.5 mg Tablet 12.5 mg PO BID Rx Instructions: must administer with a meal/food zinc acetate 50 mg (zinc) Capsule 50 mg PO DAILY tizanidine 2 mg Tablet 2 mg PO Q8H PRN (Reason: MUSCLE SPASMS) atorvastatin 10 mg Tablet 10 mg PO BEDTIME amiodarone 200 mg Tablet 200 mg PO DAILY melatonin 3 mg Tablet 3 mg PO BEDTIME aspirin 81 mg Tablet,Delayed Release (Dr/Ec) 81 mg PO DAILY isosorbide mononitrate 60 mg Tablet Extended Release 24 Hr 60 mg PO DAILY lorazepam 0.5 mg Tablet 0.5 mg PO BID PRN (Reason: Anxiety) ascorbic acid (vitamin C) 500 mg Tablet 500 mg PO BID tamsulosin 0.4 mg Capsule 0.4 mg PO BEDTIME amlodipine 10 mg Tablet 10 mg PO DAILY bisacodyl 10 mg Suppository 10 mg DC DAILY PRN (Reason: Constipation) pantoprazole 40 mg Tablet,Delayed Release (Dr/Ec) 40 mg PO DAILY ferrous sulfate 325 mg (65 mg iron) Tablet 325 mg PO Q2D trazodone 300 mg Tablet 300 mg PO BEDTIME gabapentin 100 mg capsule 100 mg PO BID insulin lispro 100 unit/mL Solution 1 sliding scale dose SUBCUT USEASDIRECTD polyethylene glycol 3350 17 gram/dose Powder 17 g PO DAILY doxycycline hyclate 100 mg Tablet 100 mg PO BID Rx Instructions: STARTED 05/31, TO END 06/07 bupropion HCl 300 mg tablet extended release 24 hr 300 mg PO DAILY lactulose 10 gram/15 mL Solution 20 g PO TID PRN (Reason: Constipation) cholecalciferol (vitamin D3) 25 mcg (1,000 unit) Tablet 25 mcg PO DAILY insulin glargine [Lantus Solostar U-100 Insulin] 100 unit/mL (3 mL) Insulin Pen 15 unit SUBCUT BEDTIME oxycodone 10 mg Tablet 10 mg PO Q4H PRN (Reason: Pain) Discharge Orders: Discharge Order (Routine); Ordered 06/05/23 Ordered By: Arjun Crespo Diet: Advance to usual diet Activity on Discharge: As tolerated Stand Alone Forms: Patient Portal Discharge page Care Plan Goals: full recovery from abdominal pain Health Concerns: gallstone, abdominal pain, high potassium check BMP in 1 week Plan of Treatment: continue your prior medication Assessment: as above Patient Instructions: Biliary Colic (ED), Gallstones (ED)
--- NOTE | 2023-06-04 11:33 | MHC.CM.PN ---
Addendum entered by Alexandra Reeder 06/04/23 13:57: DISCHARGE HAS BEEN CX PER . CENTER UPDATED. Original Note: DP: PT HAS BEEN MEDICALLY CLEARED FOR DC BACK TO [facility] FOR RESUMPTION OF [facility] CARE. RN AWARE. CENTER AWARE OF RETURN. BLS TRANSPORT BOOKED FOR 2 PM VIA [facility].
[2023-06-04 15:11] VITALS: BP 160/82; PULSE 52; RESP 20; TEMP 36.5; O2SAT 97
[2023-06-04 20:00] VITALS: BP 176/80; PULSE 91; RESP 20; TEMP 36.8; O2SAT 95
[2023-06-04] MEDS: Melatonin 3 MG TABLET PO (22:02)
[2023-06-04] MEDS: Tamsulosin HCL 0.4 MG CAPSULE PO (22:02)
[2023-06-04] MEDS: Atorvastatin Calcium 10 MG TABLET PO (22:03)
[2023-06-05] MEDS: TiZANidine HCL 4 MG TABLET 2 MG PO (00:04)
[2023-06-05 00:13] VITALS: BP 142/76; PULSE 50; RESP 18; TEMP 36.4; O2SAT 94
[2023-06-05] MEDS: Omeprazole 20 MG CAPSULE.DR PO (06:25)
[2023-06-05 07:04] VITALS: BP 135/66; PULSE 50; RESP 18; TEMP 36.6; O2SAT 97
[2023-06-05] MEDS: Doxycycline Monohydrate 100 MG CAPSULE PO (07:25)
--- NOTE | 2023-06-05 10:38 | MHC.CM.PN ---
pt to be dcd today at 2 to [facility]
[2023-06-05] MEDS: Ferrous Sulfate 324 MG TABLET.DR PO (13:00)
== END 2023-06-05 13:54 | disposition skilled nursing facility (03) ==
LOC: HO.ED 06-01 02:11 → HO.EDOVER 06-01 10:28 → HO.S3 06-02 05:57
PROVIDERS: Emergency Medicine; Admitting Provider Internal Medicine; Emergency Provider Emergency Medicine Emergency Medical Services; Visit Provider Internal Medicine
DX: K80.20 Calculus of gallbladder without cholecystitis without obstruction (principal); N17.9 Acute kidney failure, unspecified; I13.0 Hypertensive heart and chronic kidney disease with heart failure and stage 1 through stage 4 chronic kidney disease, or unspecified chronic kidney disease; I42.8 Other cardiomyopathies; E11.22 Type 2 diabetes mellitus with diabetic chronic kidney disease; I50.42 Chronic combined systolic (congestive) and diastolic (congestive) heart failure; E86.0 Dehydration; L89.610 Pressure ulcer of right heel, unstageable; I48.0 Paroxysmal atrial fibrillation; N40.0 Benign prostatic hyperplasia without lower urinary tract symptoms; K21.9 Gastro-esophageal reflux disease without esophagitis; N18.4 Chronic kidney disease, stage 4 (severe); Z99.81 Dependence on supplemental oxygen; J44.9 Chronic obstructive pulmonary disease, unspecified; Z20.822 Contact with and (suspected) exposure to COVID-19; Z95.810 Presence of automatic (implantable) cardiac defibrillator; Z79.4 Long term (current) use of insulin; Z79.899 Other long term (current) drug therapy
CPT/HCPCS: 0241U; 36415; 74176; 76705; 78227; 80048; 80051; 80076; 81001; 82947; 83690; 84484; 85025; 85027; 99285; A9537; J0696; J1170; J1650; J1836; J2405; J2805

== ENCOUNTER → 2023-06-01 10:20 | Outpatient (BNV) | payer MEDICAID, SELFPAY | PROVIDERS: Admitting Provider Internal Medicine; Emergency Provider Emergency Medicine Emergency Medical Services; Visit Provider Physician Assistant Surgical | DX: K80.20 Calculus of gallbladder without cholecystitis without obstruction (principal) | CPT/HCPCS: 99222; 99232; 99499 ==

== ENCOUNTER → 2023-06-01 10:20 | Outpatient (BNV) | payer MEDICAID, SELFPAY | PROVIDERS: Admitting Provider Internal Medicine; Emergency Provider Emergency Medicine Emergency Medical Services; Visit Provider Internal Medicine | DX: E86.0 Dehydration (principal) | CPT/HCPCS: 99223; 99232; 99239 ==

== ENCOUNTER 2023-10-17 09:05 | Inpatient (IN) | payer MEDICAID, SELFPAY ==
--- NOTE | 2023-10-17 | ECG_ITS ---
Test Reason : chest pain Blood Pressure : / mmHG Vent. Rate : 064 BPM Atrial Rate : 052 BPM P-R Int : 000 ms QRS Dur : 190 ms QT Int : 556 ms P-R-T Axes : 051 269 111 degrees QTc Int : 573 ms Ventricular-paced rhythm Abnormal ECG No previous ECGs available Referred By: Generic ED Physician Electronically Signed By:ARNULFO FARRELL MD
--- NOTE | ~2023-10-17 | XR_ITS ---
EXAMINATION: XR CHEST CLINICAL INFORMATION: Hypoxia rule out aspiration pneumonia COMPARISON: None available. TECHNIQUE: Frontal view of the chest was obtained. FINDINGS: Right-sided tunneled central venous catheter terminating in mid SVC. Left chest wall pacer leads terminating in the right atrium, right ventricle, and coronary sinus. Bronchial thickening which can be seen in the setting of infectious/inflammatory etiology. Left basilar radiopacity which may reflect atelectasis versus evolving infectious/inflammatory etiology. No pneumothorax. Trachea is midline. Cardiac mediastinal silhouette is mildly enlarged. No large pleural effusion. Osseous structures are intact. Soft tissues are unremarkable. XR/XR chest 1V IMPRESSION: 1. Bronchial thickening which can be seen in the setting of infectious/inflammatory etiology. 2. Left basilar radiopacity which may reflect atelectasis versus evolving infectious/inflammatory etiology.
--- NOTE | ~2023-10-17 | CT_ITS ---
EXAMINATION: CT HEAD WITHOUT CONTRAST CLINICAL INFORMATION: Mental status change COMPARISON: None available. TECHNIQUE: Contiguous axial imaging was performed from the skull base to vertex without intravenous administration of contrast. This CT examination was performed using dose optimization techniques as appropriate, variously including the following: *Automated exposure control *Adjustment of mA and/or kV according to patient size (this includes techniques or standardized protocols for targeted exams where dose is matched to indication/reason for exam; i.e. extremities or head) *Use of iterative reconstruction technique DLP: 731.5 mGy-cm FINDINGS: There is no evidence of acute intracranial hemorrhage or territorial infarction. Questionably asymmetric periventricular white matter hypodensity along the left posterior ventricular horn/parietal occipital region may reflect underlying chronic white matter small vessel ischemic changes though correlation with symptomatology for subacute ischemic changes. Cerebral atrophy with commensurate ventricular changes. No abnormal mass effect or midline shift is seen. Wasserman to white matter differentiation is well preserved. No extra-axial fluid collections are identified. There is no abnormal attenuation within the brain parenchyma. The osseous structures and soft tissues are normal. Mucoperiosteal thickening of the bilateral maxillary sinuses. The mastoid air cells and visualized portions of the paranasal sinuses are well aerated. Atherosclerotic calcifications. CT/CT head/brain wo IV con IMPRESSION: 1. No acute intracranial hemorrhage. 2. Questionably asymmetric periventricular white matter hypodensity along the left posterior ventricular horn/parieto-occipital region may reflect underlying chronic white matter small vessel ischemic changes though correlation with symptomatology for subacute ischemic changes.
--- NOTE | ~2023-10-17 | CT_ITS ---
EXAMINATION: CT ABDOMEN AND PELVIS WITHOUT CONTRAST CLINICAL INFORMATION: Vomiting and mental status change. COMPARISON: CT abdomen/pelvis dated 05/31/2023 and abdominal ultrasound dated 06/01/2023. TECHNIQUE: Multidetector volumetric imaging was performed from the superior aspect of the liver through the pubic symphysis. Sagittal and coronal reformatted images were obtained on the technologist's workstation. This CT examination was performed using dose optimization techniques as appropriate, variously including the following: *Automated exposure control. *Adjustment of mA and/or kV according to patient size (this includes techniques or standardized protocols for targeted exams where dose is matched to indication/reason for exam; i.e. extremities or head). *Use of iterative reconstruction technique. DLP: 1659 mGy-cm FINDINGS: LUNG BASES: Bibasilar atelectasis and minimal bronchiectasis, slightly more prominent when compared to the prior examination. LIVER, GALLBLADDER, AND BILIARY TREE: The liver is normal in size, shape, and attenuation. No focal hepatic lesion or biliary ductal dilatation is present. Redemonstration of cholelithiasis without gallbladder wall thickening or pericholecystic free fluid to suggest acute cholecystitis. The gallbladder is again noted to be distended. No common bile duct dilatation. PANCREAS: Severely atrophic with fatty infiltration. SPLEEN: Unremarkable. ADRENAL GLANDS: Unremarkable. KIDNEYS AND URETERS: Fat necrosis redemonstrated along the posterior aspect of the left kidney. Left mid pole simple-appearing cyst, unchanged. Findings are not clinically significant and no dedicated follow-up imaging is recommended. No new renal or ureteral stone. No hydronephrosis or hydroureter. Vascular calcifications are again noted. BLADDER: Partially distended with circumferential wall thickening, new when compared to the prior examination. Findings could represent an infectious or inflammatory process in the appropriate clinical setting. GASTROINTESTINAL TRACT: Ztegmgrb-xv-xgprrz stool burden. No small or large bowel obstruction. Rectal circumferential wall thickening, new when compared to the prior examination. Findings may be due to underdistention or indicate an infectious or inflammatory process. No evidence of perforation or abscess formation. Appendix not identified; however, no right lower quadrant inflammatory change to suggest acute appendicitis. PERITONEAL CAVITY: No intra-abdominal free air or free fluid. ABDOMINAL WALL: No significant hernia is appreciated. LYMPH NODES: No significant lymphadenopathy. VASCULAR: Atherosclerotic calcifications. No abdominal aortic dilatation. PELVIC VISCERA: The prostate and seminal vesicles are unremarkable. OSSEOUS STRUCTURES: Unremarkable. CT/CT abdomen pelvis wo IV con IMPRESSION: 1. Gmkrzaru-us-uwpexp stool burden, increased when compared to the prior examination. Rectal circumferential wall thickening, new when compared to the prior examination. Findings may be due to underdistention or indicate an infectious or inflammatory process. No evidence of perforation or abscess formation. 2. Partially distended urinary bladder with circumferential wall thickening, new when compared to the prior examination. Findings could represent an infectious or inflammatory process in the appropriate clinical setting. 3. Additional chronic findings are unchanged. Fleischner guidelines were followed.
[2023-10-17 09:17] VITALS: BP 170/69; PULSE 52; RESP 12; TEMP 36.4; O2SAT 96
[2023-10-17 09:21] VITALS: BP 170/69; PULSE 52; RESP 20; TEMP 36.4; O2SAT 96; BMI 29.9
[2023-10-17 09:46] LABS: MANUAL DIFF FLAG NO
[2023-10-17 09:48] LABS: Basophils Absolute Auto 0.1 X10*3/uL (0.0-0.2); Eosinophils Absolute Auto 0.3 X10*3/uL (0.0-0.4); Eosinophils Percent Auto 3.3 % (0-4); Hematocrit 36.3 % (42.0-52.0); Hemoglobin 11.8 g/dl (14.0-18.0); Imm Gran Abs Auto 0.03 X10*3/uL (0.00-0.03); Imm Gran Pct Auto 0.3 % (0.0-0.4); Lymphocytes Absolute Auto 1.2 X10*3/uL (1.2-4.9); Lymphocytes Percent Auto 11.9 % (20-40); Mean Corpuscular HGB Conc 32.5 g/dl (31.0-36.0); Mean Corpuscular Hemoglobin 31.2 pg (27.0-33.0); Monocytes Absolute Auto 0.5 X10*3/uL (0.1-1.2); Monocytes Percent Auto 5.2 % (2-11); Neutrophils Percent Auto 78.3 % (45-73); Red Blood Count 3.78 X10*6/uL (4.60-5.80); Red Cell Distribution Width 13.6 % (11.0-16.0); White Blood Count 10.2 X10*3/uL (4.8-10.8)
--- NOTE | 2023-10-17 09:53 | ED_ITS ---
HPI - General Adult General Chief complaint: Altered Mental Status Stated complaint: NAUSEA,CLOGGED DIALYSIS PORT FROM SNF PER EMS Time Seen by Provider: 10/17/23 09:33 Source: patient, EMS, RN notes reviewed and old records reviewed Mode of arrival: EMS Limitations: no limitations History of Present Illness ED Provider: DR. Espinoza HPI narrative: A 63-year-old male with PMH of nonischemic cardiomyopathy, systolic and diastolic CHF, s/p ICD, paroxysmal AFib, oxygen-dependent COPD, CKD on dialysis M/W/F last dialysis was Thursday patient missed his dialysis on Thursday because he had problem has right chest wall PermCath, T2 DM, HTN, BPH, UTIs [facility] chief complaint of change mental status patient in the emergency department is awake, oriented, able to provide detailed history, patient only complaint that he was feeling nauseous in the morning now is resolving and patient is improving, slight abdominal pain, last bowel movement was yesterday and was normal with no diarrhea or blood. No sick contacts, no exposure to bad food, no recent travel. Related Data Home Medications ?Medication ?Instructions ?Recorded ?Confirmed amiodarone 200 mg tablet 200 mg PO DAILY 06/01/23 06/01/23 amlodipine 10 mg tablet 10 mg PO DAILY 06/01/23 06/01/23 ascorbic acid (vitamin C) 500 mg 500 mg PO BID 06/01/23 06/01/23 tablet aspirin 81 mg tablet,delayed 81 mg PO DAILY 06/01/23 06/01/23 release atorvastatin 10 mg tablet 10 mg PO BEDTIME 06/01/23 06/01/23 bisacodyl 10 mg rectal suppository 10 mg CO DAILY PRN Constipation 06/01/23 06/01/23 bupropion HCl 300 mg 24 hr tablet, 300 mg PO DAILY 06/01/23 06/01/23 extended release carvedilol 12.5 mg tablet 12.5 mg PO BID 06/01/23 06/01/23 cholecalciferol (vitamin D3) 25 25 mcg PO DAILY 06/01/23 06/01/23 mcg (1,000 unit) tablet doxycycline hyclate 100 mg tablet 100 mg PO BID 06/01/23 06/01/23 ferrous sulfate 325 mg (65 mg 325 mg PO Q2D 06/01/23 06/01/23 iron) tablet fluoxetine 40 mg capsule 40 mg PO DAILY 06/01/23 06/01/23 gabapentin 100 mg capsule 100 mg PO BID 06/01/23 06/01/23 insulin glargine 100 unit/mL (3 15 unit subcut BEDTIME 06/01/23 06/01/23 mL) subcutaneous pen (Lantus Solostar U-100 Insulin) insulin lispro 100 unit/mL 1 sliding scale dose subcut 06/01/23 06/01/23 subcutaneous solution USEASDIRECTD isosorbide mononitrate 60 mg 60 mg PO DAILY 06/01/23 06/01/23 tablet,extended release 24 hr lactulose 10 gram/15 mL oral 20 g PO TID PRN Constipation 06/01/23 06/01/23 solution latanoprost 0.005 % eye drops 1 drp ophthalmic (eye) BEDTIME 06/01/23 06/01/23 lorazepam 0.5 mg tablet 0.5 mg PO BID PRN Anxiety 06/01/23 06/01/23 melatonin 3 mg tablet 3 mg PO BEDTIME 06/01/23 06/01/23 multivitamin 1 tab PO DAILY 06/01/23 06/01/23 oxycodone 10 mg tablet 10 mg PO Q4H PRN Pain 06/01/23 06/01/23 pantoprazole 40 mg tablet,delayed 40 mg PO DAILY 06/01/23 06/01/23 release polyethylene glycol 3350 17 17 g PO DAILY 06/01/23 06/01/23 gram/dose oral powder sennosides 8.6 mg tablet (senna) 17.2 mg PO BID 06/01/23 06/01/23 tamsulosin 0.4 mg capsule 0.4 mg PO BEDTIME 06/01/23 06/01/23 tizanidine 2 mg tablet 2 mg PO Q8H PRN MUSCLE SPASMS 06/01/23 06/01/23 trazodone 300 mg tablet 300 mg PO BEDTIME 06/01/23 06/01/23 zinc acetate 50 mg (zinc) capsule 50 mg PO DAILY 06/01/23 06/01/23 Allergies Allergy/AdvReac Type Severity Reaction Status Date / Time Losartan Allergy Unknown Unknown Uncoded 10/17/23 09:25 Review of Systems 2 Review of Systems: All other systems are reviewed and are negative Constitutional: Reports as per HPI and Reports no additional constitutional complaints Eyes: Reports as per HPI and Reports no additional eye complaints Reports system reviewed and no additional complaints, except as documented Cardiovascular: Reports as per HPI and Reports no additional cardiovascular complaints Respiratory: Reports as per HPI and Reports no additional respiratory complaints Gastrointestinal: Reports as per HPI and Reports no additional gastrointestinal complaints Genitourinary: Reports no additional female genitourinary complaints Musculoskeletal: Reports no additional musculoskeletal complaints Skin/Breast: Reports system reviewed and no additional complaints, except as docu Psychiatric: Reports no additional psychiatric complaints Endocrine: Reports no additional endocrine complaints Hematologic/Lymphatic: Reports no additional hematologic/lymphatic complaints Allergic/Immunologic: Reports no additional allergic/immunologic complaints Reports system reviewed and no additional complaints, except as documented and Reports Abnormal speech present [facility] Past Medical History Medical History ICD (implantable cardioverter-defibrillator) in place History of recurrent UTIs Psoriasis Major depression Hypoglycemia HTN (hypertension) History of ventricular tachycardia Gout GERD (gastroesophageal reflux disease) NICOL (generalized anxiety disorder) Diabetes COPD (chronic obstructive pulmonary disease) Complications of immobility CKD (chronic kidney disease) stage 4, GFR 15-29 ml/min Combined systolic and diastolic congestive heart failure BPH (benign prostatic hyperplasia) Biventricular automatic implantable cardioverter defibrillator in situ Chronic anemia Social History Social History Household Members: Unknown / Unable to assess Unable to assess alcohol history related to: Unknown Patient Tobacco Use Status: Never used Tobacco Advance Directives: No Advance Directives Information Provided: No Do you have a plan to hurt others: No Plan service: No Physical Exam ED Vital Signs: Vital Signs - 24 hr 10/17/23 09:17 10/17/23 09:21 10/17/23 10:53 Temperature 97.6 F 97.6 F Pulse Rate 52 52 50 Respiratory Rate 12 20 16 Blood Pressure 170/69 H 170/69 H 171/67 H Pulse Oximetry 96 96 96 Oxygen Delivery Method Nasal Cannula Room Air Room Air BMI result Body Mass Index 29.9 Vital signs have been reviewed and appear to be correct. Blood pressure elevated. Heart rate normal. Respiratory rate normal. Temperature normal. Oxygen saturation normal. Appearance: Alert. Oriented X3. No acute distress. Head: Normal external exam. Normocephalic. Atraumatic. No Doss signs noted. No raccoon eyes noted Eyes: PERRLA. EOMI. Conjunctiva and sclera normal. Eyelids normal. ENT: TM's Normal. Pharynx normal. Uvula midline. Moist mucous membranes. No trismus noted. No drooling noted. No muffled voice noted. Neck: Normal inspection. Neck supple. FROM. No adenopathy. Thyroid Normal. No meningeal signs. No neck mass noted. CVS: Normal heart rate and rhythm. Heart sound normal. No murmurs noted. Pulses normal throughout. Respiratory: No respiratory distress. Painless inspiration. Breath sounds normal. No wheezes/rales/rhonchi noted. Chest nontender. No accessory muscle usage noted or decreased air movement noted. Abdomen: Soft and nontender. Bowel sounds normal in all 4 quadrants. No distention noted. No organomegaly noted. No visible injury noted. Back: No CVA tenderness. Full range of motion noted. Skin: Skin warm and dry. Normal skin color. Normal skin turgor. No rashes/lesions/lacerations noted. Extremities: No lower extremity edema. Extremities exhibit normal range of motion. Extremities nontender. Neuro: Oriented X 3. Cranial nerve exam: II-XII are grossly intact No motor deficit. No sensory deficit. Reflexes normal. Course Reevaluation(s) Reevaluation #1: 63-year-old male ESRD missed his last dialysis came in for change mental status, found to be hyperkalemic the case was discussed with Dr. Amrik Oconnor who will perform dialysis today, patient also found to be hypoxic patient at risk of aspiration chest x-ray is questioning aspiration pneumonia patient is covered with Zosyn, patient do not have SIRS or sepsis. Patient do not make much urine unable to obtain UA will start Zosyn for aspiration pneumonia. Time: 14:30 Medications Administered Discontinued Medications Generic Name Dose Route Start Last Admin Trade Name Freq PRN Reason Stop Dose Admin Piperacillin Sod/Tazobactam 50 mls @ 100 mls/hr 10/17/23 12:49 10/17/23 13:57 Sod 3.375 gm/ Sodium Chloride IV 10/17/23 13:18 100 mls/hr ONCE ONE Administration Sodium Zirconium Cyclosilicate 10 gm 10/17/23 10:40 10/17/23 10:56 Sodium Zirconium Cyclosilicate 10 Gm Powd.Pack PO 10/17/23 10:41 10 gm ONCE ONE Administration Medical Decision Making Differential Diagnosis Differential Diagnoses: The differential diagnosis associated with the presentation includes (Aspiration pneumonia, volume overload, CHF, hyperkalemia, pneumothorax, intracranial bleed, colitis, diverticulitis, severe anemia.) Admission/Observation Consideration of admission/observation: Escalation of care including admission/observation considered Lab Data MDM Lab Attestation statement: I reviewed the patient's lab results. 10/17/23 09:40 10/17/23 09:40 Labs: Lab Results 10/17/23 Range/Units 09:40 WBC 10.2 (4.8-10.8) X10*3/uL RBC 3.78 L (4.60-5.80) X10*6/uL Hgb 11.8 L (14.0-18.0) g/dl Hct 36.3 L (42.0-52.0) % MCV 96.0 (80.0-98.0) fL MCH 31.2 (27.0-33.0) pg MCHC 32.5 (31.0-36.0) g/dl RDW 13.6 (11.0-16.0) % Plt Count 158 L D (160-400) X10*3/uL MPV 9.8 (9.4-12.4) fL Immature Gran % (Auto) 0.3 (0.0-0.4) % Neut % (Auto) 78.3 H (45-73) % Lymph % (Auto) 11.9 L (20-40) % [place] % (Auto) 5.2 (2-11) % Eos % (Auto) 3.3 (0-4) % Baso % (Auto) 1.0 (0-2) % Lymph # (Auto) 1.2 (1.2-4.9) X10*3/uL [place] # (Auto) 0.5 (0.1-1.2) X10*3/uL Eos # (Auto) 0.3 (0.0-0.4) X10*3/uL Baso # (Auto) 0.1 (0.0-0.2) X10*3/uL Abs Immat Gran (auto) 0.03 (0.00-0.03) X10*3/uL Absolute Neuts (auto) 8.0 (2.0-8.3) x10*3/uL Absolute Nucleated RBC 0.000 (0.0-0.012) X10*3/uL Nucleated RBC % (auto) 0.0 (0.0-0.2) /100WBC PT 12.1 (11.1-13.3) SEC INR 1.0 (0.9-1.1) Sodium 133 L (135-145) mmol/L Potassium 6.8 H* (3.3-5.1) mmol/L Chloride 97 (96-108) mmol/L Carbon Dioxide 22 (22-29) mmol/L Anion Gap 21 H (12-20) BUN 84 H (9-16) mg/dL Creatinine 5.82 H* (0.5-1.4) mg/dL Estim Creat Clear Calc 14.0 Estimated GFR 10 Random Glucose 69 (60-115) mg/dL Calcium 8.6 (8.4-10.2) mg/dL Magnesium 2.2 (1.6-2.6) mg/dL Total Bilirubin 0.5 (0.0-1.0) mg/dL AST 17 (5-37) U/L ALT 11 (0-40) U/L Alkaline Phosphatase 57 (39-117) U/L Troponin I High Sens 15.3 (<3.5-35.0) ng/L Total Protein 6.9 (6.5-8.0) g/dL Albumin 2.9 L (3.5-5.0) g/dL Independent Interpretation I performed an independent interpretation of an: Plain X-Ray (Chest:1. Bronchial thickening which can be seen in the setting of infectious/inflammatory etiology. 2. Left basilar radiopacity which may reflect atelectasis versus evolving infectious/inflammatory etiology. ) and CT Scan (Head/abdomen pelvis: No acute intracranial hemorrhage.1. Xyywckcb-ku-[id number] stool burden, increased when compared to the prior examination. Rectal circumferential wall thickening, new when compared to the prior examination. Findings may be due to underdistention or indicate an infectious or inflamm) Radiology Impression Discussion of test interpretation with radiology: I have reviewed the radiologist's reading. Chronic Conditions Patient?s care impacted by: Other (End-stage renal disease) Discharge Plan Discharge Clinical Impression: Hyperkalemia, Pneumonia Patient Disposition: Admitted As Inpatient Print Language: [place]
[2023-10-17 09:54] LABS: Prothrombin Time 12.1 SEC (11.1-13.3)
[2023-10-17 10:00] LABS: Mean Platelet Volume 9.8 fL (9.4-12.4); Platelet Count 158 X10*3/uL (160-400)
[2023-10-17 10:14] LABS: Troponin-I High Sensitivity 15.3 ng/L (<3.5-35.0)
[2023-10-17 10:40] LABS: Alanine Aminotransferase 11 U/L (0-40); Albumin Level 2.9 g/dL (3.5-5.0); Alkaline Phosphatase 57 U/L (39-117); Anion Gap 21 (12-20); Aspartate Amino Transferase 17 U/L (5-37); Bilirubin Total 0.5 mg/dL (0.0-1.0); Blood Urea Nitrogen 84 mg/dL (9-16); Calcium 8.6 mg/dL (8.4-10.2); Carbon Dioxide 22 mmol/L (22-29); Chloride 97 mmol/L (96-108); Estimated Glomerular Filt Rate 10; Glucose Random 69 mg/dL (60-115); Magnesium 2.2 mg/dL (1.6-2.6); Potassium 6.8 mmol/L (3.3-5.1); Sodium 133 mmol/L (135-145); Total Protein 6.9 g/dL (6.5-8.0)
[2023-10-17 10:53] VITALS: BP 171/67; PULSE 50; RESP 16; O2SAT 96
[2023-10-17] MEDS: Sodium Zirconium Cyclosilicate 10 GM POWD.PACK PO (10:56)
[2023-10-17] MEDS: Piperacillin Sodium/Tazobactam 3.375 GM in 0.9 % Sodium Chloride 50 ML IV (13:57)
--- NOTE | 2023-10-17 15:13 | PM.IMHP ---
History of Present Illness Date of Service: 10/17/23 Chief Complaint: Altered mentation, lethargy A 63 years old male with PMH of ESRD on HD, NICM, CHF s\p ICD, AFIB, COPD, DM, BPH, HTN among others who presented to the hospital by EMS for altered mentation and lethargy. The patient could not finish dialysis on Thursday for clogged Permacath. last HD on Thursday. He was brought to the hospital as noticed altered in the facility by staff and lethargy. No chest pain, palpitations, SOB, nausea, vomiting, diarrhea or urinary symptoms. He reports cough and nasuea. In ED found to have Hyperkalemia, possible Pnuemonia as CXR reporting atelactasis and possible infiltrates Admitted for further evaluation and treatment. Review of Systems Review of Systems: No fever, chills but has weakness No chest pain, palpitation reporting mild shortness of breath or coughing No abdominal pain, nausea or vomiting No urinary symptoms PMFSH Medical History ICD (implantable cardioverter-defibrillator) in place History of recurrent UTIs Psoriasis Major depression Hypoglycemia HTN (hypertension) History of ventricular tachycardia Gout GERD (gastroesophageal reflux disease) NICOL (generalized anxiety disorder) Diabetes COPD (chronic obstructive pulmonary disease) Complications of immobility CKD (chronic kidney disease) stage 4, GFR 15-29 ml/min Combined systolic and diastolic congestive heart failure BPH (benign prostatic hyperplasia) Biventricular automatic implantable cardioverter defibrillator in situ Chronic anemia Social History Household Members: Unknown / Unable to assess Unable to assess alcohol history related to: Unknown Patient Tobacco Use Status: Never used Tobacco Advance Directives: No Advance Directives Information Provided: No Do you have a plan to hurt others: No Plan service: No Meds Allergies Allergy/AdvReac Type Severity Reaction Status Date / Time Losartan Allergy Unknown Unknown Uncoded 10/17/23 09:25 Active Medications: Current Medications Acetaminophen (Acetaminophen 325 Mg Tablet) 650 mg PO Q6H PRN PRN Reason: Pain, Mild (Pain Scale 1-3) Doxycycline Monohydrate (Doxycycline Monohydrate 100 Mg Capsule) 100 mg PO Q12H CINTHYA Heparin Sodium (Porcine) (Heparin Sodium,Porcine 5,000 Unit/Ml Vial) 5,000 unit SUBCUT Q12H CINTHYA Ceftriaxone Sodium 1 gm/ (Sodium Chloride) 50 mls @ 100 mls/hr IV Q24H CINTHYA Lactulose (Lactulose 20 Gm/30 Ml Solution) 20 gm PO TID CINTHYA Ondansetron HCl (Ondansetron Hcl 4 Mg/2 Ml Vial) 4 mg IVPUSH Q8H PRN PRN Reason: Nausea and Vomiting Sodium Chloride (0.9 % Sodium Chloride Flush 3 Ml Syringe) 3 ml IVFLUSH QSHIFT CINTHYA Sodium Polystyrene Sulfonate (Sodium Polystyrene Sulfon/Sorb 15 Gm/60 Ml Oral.Susp) 30 gm PO ONCE ONE Stop: 10/17/23 15:06 Home Medications ?Medication ?Instructions ?Recorded ?Confirmed ?Last Taken ?Type amiodarone 200 mg tablet 200 mg PO DAILY@119906/01/23 10/17/23 Unknown History aspirin 81 mg tablet,delayed 81 mg PO DAILY@119906/01/23 10/17/23 Unknown History release atorvastatin 10 mg tablet 10 mg PO BEDTIME 06/01/23 10/17/23 Unknown History bisacodyl 10 mg rectal suppository 10 mg MD DAILY PRN Constipation 06/01/23 10/17/23 Unknown History bupropion HCl 300 mg 24 hr tablet, 300 mg PO DAILY@119906/01/23 10/17/23 Unknown History extended release cholecalciferol (vitamin D3) 25 25 mcg PO DAILY 06/01/23 10/17/23 Unknown History mcg (1,000 unit) tablet ferrous sulfate 325 mg (65 mg 325 mg PO Q2D@119906/01/23 10/17/23 Unknown History iron) tablet fluoxetine 40 mg capsule 40 mg PO DAILY@119906/01/23 10/17/23 Unknown History gabapentin 100 mg capsule 100 mg PO BID 06/01/23 10/17/23 Unknown History insulin glargine 100 unit/mL (3 15 unit subcut BEDTIME 06/01/23 10/17/23 Unknown History mL) subcutaneous pen (Lantus Solostar U-100 Insulin) insulin lispro 100 unit/mL 1 sliding scale dose subcut TIDAC 06/01/23 10/17/23 Unknown History subcutaneous solution isosorbide mononitrate 60 mg 60 mg PO DAILY@119906/01/23 10/17/23 Unknown History tablet,extended release 24 hr lactulose 10 gram/15 mL oral 20 g PO TID PRN Constipation 06/01/23 10/17/23 Unknown History solution latanoprost 0.005 % eye drops 1 drp ophthalmic (eye) BEDTIME 06/01/23 10/17/23 Unknown History lorazepam 0.5 mg tablet 0.5 mg PO BID PRN Anxiety 06/01/23 10/17/23 Unknown History melatonin 3 mg tablet 3 mg PO BEDTIME 06/01/23 10/17/23 Unknown History polyethylene glycol 3350 17 17 g PO DAILY@1200 06/01/23 10/17/23 Unknown History gram/dose oral powder sennosides 8.6 mg tablet (senna) 17.2 mg PO BID 06/01/23 10/17/23 Unknown History tamsulosin 0.4 mg capsule 0.4 mg PO BEDTIME 06/01/23 10/17/23 Unknown History tizanidine 2 mg tablet 2 mg PO Q8H PRN MUSCLE SPASMS 06/01/23 10/17/23 Unknown History albuterol sulfate 2.5 mg/3 mL 2.5 mg inhalation Q4H PRN 10/17/23 10/17/23 Unknown History (0.083 %) solution for nebulization Shortness Of Breath Or Wheezing dextran 70-hypromellose (PF) 0.1 2 drp ophthalmic (eye) Q4H PRN Dry 10/17/23 10/17/23 Unknown History %-0.3 % eye drops in a dropperette Eyes (Artificial Tears (PF)) ipratropium 20 mcg-albuterol 100 2 puff inhalation Q6H PRN 10/17/23 10/17/23 Unknown History mcg/actuation mist for inhalation Shortness Of Breath Or Wheezing (Combivent Respimat) metoprolol succinate 25 mg 25 mg PO DAILY@1200 10/17/23 10/17/23 Unknown History tablet,extended release 24 hr nitroglycerin 0.4 mg sublingual 0.4 mg sublingual Q5M PRN Chest 10/17/23 10/17/23 Unknown History tablet Pain oxycodone 15 mg tablet 15 mg PO Q6H PRN Pain 10/17/23 10/17/23 Unknown History pantoprazole 20 mg tablet,delayed 20 mg PO DAILY@0630 10/17/23 10/17/23 Unknown History release sevelamer HCl 800 mg tablet 800 mg PO TID 10/17/23 10/17/23 Unknown History trazodone 150 mg tablet 150 mg PO BEDTIME 10/17/23 10/17/23 Unknown History vitamin B complex-vitamin C-folic 1 tab PO DAILY 10/17/23 10/17/23 Unknown History acid 0.8 mg tablet (Nephro Vitamins) Physical Exam Vital Signs and Narrative: Vital Signs: Last Vital Signs Temp 97.6 F 10/17/23 09:21 Pulse 50 10/17/23 10:53 Resp 16 10/17/23 10:53 BP 171/67 H 10/17/23 10:53 Pulse Ox 96 10/17/23 10:53 O2 Del Method Room Air 10/17/23 10:53 BMI result Body Mass Index 29.9 Const: Other: Constitutional : Awake, interactive, not in distress Neck : Normal inspection, Supple Cardiovascular : RRR, no JVP, no lower extremity edema Respiratory : good bilateral air entry, basal fine crackles Gastrointestinal: soft, lax, Normal bowel sounds, Non tender Skin : Warm, Dry, PErmacath in chest wall with no surrounding erythema Neurological : Alert & oriented to self and place, No focal deficit Results Labs 10/17/23 09:40 10/17/23 14:56 Labs: Laboratory Results - last 24 hr 10/17/23 09:40 MCV 96.0 MCH 31.2 MCHC 32.5 RDW 13.6 Plt Count 158 L D MPV 9.8 Immature Gran % (Auto) 0.3 Neut % (Auto) 78.3 H Lymph % (Auto) 11.9 L [place] % (Auto) 5.2 Eos % (Auto) 3.3 Baso % (Auto) 1.0 Lymph # (Auto) 1.2 [place] # (Auto) 0.5 Eos # (Auto) 0.3 Baso # (Auto) 0.1 Abs Immat Gran (auto) 0.03 Absolute Neuts (auto) 8.0 Absolute Nucleated RBC 0.000 Nucleated RBC % (auto) 0.0 PT 12.1 INR 1.0 Anion Gap 21 H Estim Creat Clear Calc 14.0 Estimated GFR 10 Random Glucose 69 Calcium 8.6 Magnesium 2.2 Total Bilirubin 0.5 AST 17 ALT 11 Alkaline Phosphatase 57 Troponin I High Sens 15.3 Total Protein 6.9 Albumin 2.9 L Imaging Radiologist's Impressions: Impressions Chest X-Ray 10/17/23 11:56 IMPRESSION: 1. Bronchial thickening which can be seen in the setting of infectious/inflammatory etiology. 2. Left basilar radiopacity which may reflect atelectasis versus evolving infectious/inflammatory etiology. Abdomen/Pelvis CT 10/17/23 12:30 IMPRESSION: 1. Eechbsrp-pl-ybevxu stool burden, increased when compared to the prior examination. Rectal circumferential wall thickening, new when compared to the prior examination. Findings may be due to underdistention or indicate an infectious or inflammatory process. No evidence of perforation or abscess formation. 2. Partially distended urinary bladder with circumferential wall thickening, new when compared to the prior examination. Findings could represent an infectious or inflammatory process in the appropriate clinical setting. 3. Additional chronic findings are unchanged. Fleischner guidelines were followed. Head CT 10/17/23 12:31 IMPRESSION: 1. No acute intracranial hemorrhage. 2. Questionably asymmetric periventricular white matter hypodensity along the left posterior ventricular horn/parieto-occipital region may reflect underlying chronic white matter small vessel ischemic changes though correlation with symptomatology for subacute ischemic changes. Assessment and Plan (1) Pneumonia: Status: Acute (2) Hyperkalemia: Status: Acute (3) Toxic metabolic encephalopathy: Status: Acute (4) ESRD (end stage renal disease) on dialysis: Status: Acute (5) Complication associated with dialysis catheter: Status: Acute Plan A 63 years old male with PMH of ESRD on HD, NICM, CHF s\p ICD, AFIB, COPD, DM, BPH, HTN among others who presented to the hospital by EMS for altered mentation and lethargy. acute Toxic metabolic encephalopathy 2/2 Infection and missing dialysis treat infection to do dialysis reorientation Pneumonia Pending cultures No sepsis treat with IV Ceftriaxone and Doxycycline O2 supplement as needed ESRD needs dialysis complicated by Permacath problem MWF schedule IR consult to evaluate cath Nephrology consult, to try Dialysis today Acute hyperkalemia 2/2 ESRD Kayexalate now Glu\Insulin for now Urgent dialysis if catheter works follow BMP Constipation Severe per CT scan Lactulose tid Afib, controlled, continue Amiodarone, not on AC DMII, Lantus and SSI Hx CAD Isosorbid, Metoprolol, Nitro, Aspirin, Atorvastatin DVT PPx Heparin The patient will need at least 2 overnight hospital stay for the need of urgent dialysis, pneumonia treatment Quality Stroke Does the patient have a stroke diagnosis?: No VTE Prior VTE?: No VTE Risk Level:: Medical - moderate - high VTE Device Contraindication: Treatment Not Indicated VTE Drug Contraindication: N/A - Med Ordered
[2023-10-17 15:24] LABS: Anion Gap 20 (12-20); Blood Urea Nitrogen 89 mg/dL (9-16); Calcium 8.4 mg/dL (8.4-10.2); Carbon Dioxide 21 mmol/L (22-29); Chloride 99 mmol/L (96-108); Estimated Glomerular Filt Rate 10; Glucose Random 62 mg/dL (60-115); Potassium 6.6 mmol/L (3.3-5.1); Sodium 133 mmol/L (135-145)
--- NOTE | 2023-10-17 15:34 | PHA.MEDREC ---
Pharmacy Consult ? Medication Reconciliation Pharmacy has completed the medication reconciliation. List from [facility]
--- NOTE | 2023-10-17 15:55 | PC.NURSE ---
This RN assumed care, found pt to be lethargic but still answering questions, reports he feels unwell. BGL assessed and is 54.Pt medicated with D10 per MAR, other meds withheld at this time. Admitting provider aware. VSS otherwise.
[2023-10-17 15:56] VITALS: BP 137/60; PULSE 62; RESP 14; O2SAT 97
[2023-10-17] MEDS: Dextrose 10 % 250 ML 750 ML IV ×2 (15:57→21:13)
[2023-10-17 16:25] LABS: Glucose, Whole Blood 114 mg/dL (60-115)
[2023-10-17 16:25] LABS: Glucose, Whole Blood 54 mg/dL (60-115)
[2023-10-17] MEDS: cefTRIAXone sodium 1 GM in 0.9 % Sodium Chloride 50 ML IV (16:26)
[2023-10-17] MEDS: 0.9 % Sodium Chloride Flush 3 ML SYRINGE IVFLUSH (16:29)
--- NOTE | 2023-10-17 16:41 | PC.NURSE ---
Pts BGL recheck WNL. PER MD order, hold insulin and PO meds and pt can be sent to dialysis. Meds withheld and pt sent to dialysis.
--- NOTE | 2023-10-17 18:30 | PC.NURSE ---
Pt remains at dialysis at this time.
[2023-10-17] MEDS: Heparin Sodium,Porcine 5,000 UNIT/ML VIAL 5000 UNIT SUBCUT (21:16)
--- NOTE | 2023-10-17 21:17 | PM.EVENT ---
Event Note Date of Service: 10/17/23 Event Note: Notified by nursing patient's POC was 54 post-dialysis. Patient was given dextrose 250 mls with improvement to 114. Patient is currently encephalopathic and NPO. Will recheck POC in 1 hour and start on D5 at 40 mL/hr if he remains hypoglycemic. Time Spent With Patient Time: Total time managing care of this patient today ____ minutes.
[2023-10-17 21:26] LABS: Appearance Urine Turbid; Color Urine Yellow; Glucose Urine UA Negative (Negative); Leukocyte Esterase Urine Large (3+) (Negative); Nitrite Urine Negative (Negative); Specific Gravity - Urine 1.025 (1.005-1.025); UMIC TRIGGER UACC YES; Urine Blood Moderate (2+) (Negative); Urine Ketones Negative (Negative); Urine Protein 100 (2+) mg/dL (Neg-Trace)
[2023-10-17 21:32] LABS: Bacteria Urine 4+ (None Seen); Hyaline Casts Urine 0-2 /LPF (0-2); UACC Culture Trigger YES; WBC Urine >50 /HPF (0-5)
[2023-10-17 21:51] VITALS: BP 175/68; PULSE 60; RESP 16; O2SAT 96
[2023-10-18 00:18] VITALS: BP 142/68; PULSE 60; RESP 15; O2SAT 98
[2023-10-18 04:15] VITALS: BP 156/65; PULSE 59; RESP 14; O2SAT 94
--- NOTE | 2023-10-18 07:00 | PC.NURSE ---
pt's poc 57 this am, dextro 10% up and going and the night provider aware, pt is alert and conversing at this time, skin pwd, respirations even and unlabored,
[2023-10-18 07:02] LABS: Glucose, Whole Blood 57 mg/dL (60-115)
[2023-10-18] MEDS: Dextrose 10 % 250 ML 750 ML IV (07:02)
[2023-10-18] MEDS: 0.9 % Sodium Chloride Flush 3 ML SYRINGE IVFLUSH (07:06)
[2023-10-18 07:12] LABS: Glucose, Whole Blood 121 mg/dL (60-115)
[2023-10-18 07:12] LABS: Glucose, Whole Blood 55 mg/dL (60-115)
[2023-10-18 07:35] LABS: Glucose, Whole Blood 126 mg/dL (60-115)
[2023-10-18 08:05] LABS: Anion Gap 17 (12-20); Blood Urea Nitrogen 48 mg/dL (9-16); Calcium 8.4 mg/dL (8.4-10.2); Carbon Dioxide 21 mmol/L (22-29); Chloride 97 mmol/L (96-108); Creatinine Clr Calc Pharmacy 19.5; Estimated Glomerular Filt Rate 14; Glucose Random 88 mg/dL (60-115); Potassium 5.1 mmol/L (3.3-5.1); Sodium 130 mmol/L (135-145)
[2023-10-18 08:25] VITALS: BP 162/75; PULSE 60; RESP 12; TEMP 36.6; O2SAT 93
[2023-10-18 08:27] LABS: Glucose, Whole Blood 92 mg/dL (60-115)
[2023-10-18 08:47] VITALS: BP 175/84; PULSE 86; RESP 20; TEMP 37.2; O2SAT 94
[2023-10-18] MEDS: Gabapentin 100 MG CAPSULE PO (10:00)
[2023-10-18] MEDS: Doxycycline Monohydrate 100 MG CAPSULE PO (10:00)
[2023-10-18] MEDS: Multivitamin TABLET 1 TAB PO (10:00)
[2023-10-18] MEDS: Heparin Sodium,Porcine 5,000 UNIT/ML VIAL 5000 UNIT SUBCUT (10:01)
[2023-10-18] MEDS: Sennosides 8.6 MG TABLET 17.2 MG PO (10:01)
[2023-10-18] MEDS: Cholecalciferol (Vitamin D3) 25 MCG TABLET PO (10:01)
[2023-10-18] MEDS: Lactulose 20 GM/30 ML SOLUTION PO (10:01)
--- NOTE | 2023-10-18 10:55 | MHC.CM.PN ---
Pt is from [facility], he reports he has been there for 5 months but his ultimate goal is to return home, but they are waiting on a emely lift to be delivered at home as he states he is bed bound. Pt goes the [facility] for dialysis on . Pt will transport back to [facility] via S/Ilana. New HCP completed with pt, now on file. Pt states his PCP is Dr. Price (cannot recall last name) at [facility].
--- NOTE | 2023-10-18 11:31 | P.DS_ITS ---
DS: Providers Provider Date of Service: 10/18/23 Date of admission: 10/17/23 15:23 Primary care physician: Unknown Physician Consults: 10/17/23 14:59 Consult to Nephrology Routine Consulting Provider: [facility] Reason for consultation: Permacath problem, Need of dialysis, Hyperkalemia DS: Diagnosis Discharge Diagnosis (1) Pneumonia: Status: Acute (2) Hyperkalemia: Status: Acute (3) Toxic metabolic encephalopathy: Status: Acute (4) ESRD (end stage renal disease) on dialysis: Status: Acute (5) Complication associated with dialysis catheter: Status: Acute DS: Summary Hospital Course Hospital Course: Admission note HPI A 63 years old male with PMH of ESRD on HD, NICM, CHF s\p ICD, AFIB, COPD, DM, BPH, HTN among others who presented to the hospital by EMS for altered mentation and lethargy. The patient could not finish dialysis on Thursday for clogged Permacath. last HD on Thursday. He was brought to the hospital as noticed altered in the facility by staff and lethargy. No chest pain, palpitations, SOB, nausea, vomiting, diarrhea or urinary symptoms. He reports cough and nasuea. In ED found to have Hyperkalemia, possible Pnuemonia as CXR reporting atelactasis and possible infiltrates Admitted for further evaluation and treatment. Hospital course # acute Toxic metabolic encephalopathy likely a result of Infection and missing dialysis that improved back to baseline after having dialysis session and starting antibiotics for infection. # Community aquired Pneumonia with no sepsis or hypoxia. Treated with IV Ceftriaxone and Doxycycline. To continue Doxy and Ceftin to finish 1 week of Abx. Incentive spirometry. # ESRD needs dialysis complicated by Permacath problem and acute Hyperkalemia that he missed HD on Thursday. Nephrology took him to dialysis and were able to access his catheter doing a full session of dialysis with resolution of hyperkalemia and altered mentation. 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 # Constipation, Severe per CT scan. Started on Lactulose tid. Discharge on laxatives. Discharge plan Continue Antibiotics for pneumonia Continue dialysis as scheduled Time Attestation Discharge Coordination Time (in mins): 38 Quality: Safe Use of Opioids Does Pt have an Active Cancer Diagnosis on the Problem List?: No Quality: Stroke Does the patient have a stroke diagnosis?: No Physical Exam Vital Signs: Vital Signs: Last Vital Signs Temp 98.9 F 10/18/23 08:47 Pulse 86 10/18/23 08:47 Resp 20 10/18/23 08:47 BP 175/84 H 10/18/23 08:47 Pulse Ox 94 10/18/23 08:47 O2 Del Method Room Air 10/18/23 08:47 O2 Flow Rate 2 10/17/23 21:51 BMI result Body Mass Index 29.9 Const: Other: Constitutional : Awake, interactive, not in distress Neck : Normal inspection, Supple Cardiovascular : RRR, no JVP, no lower extremity edema Respiratory : good bilateral air entry, basal fine crackles Gastrointestinal: soft, lax, Normal bowel sounds, Non tender Skin : Warm, Dry, PErmacath in chest wall with no surrounding erythema Neurological : Alert & oriented to self and place, No focal deficit DS: Data Data Completed and Pending Labs on day of discharge: Laboratory Results - last 24 hr 10/17/23 10/17/23 10/17/23 14:56 15:49 16:22 Hold Purple Top Sodium 133 L Potassium 6.6 H* Chloride 99 Carbon Dioxide 21 L Anion Gap 20 BUN 89 H Creatinine 5.86 H* Estim Creat Clear Calc 14.0 Estimated GFR 10 POC Glucose 54 L* 114 Random Glucose 62 Calcium 8.4 Urine Color Urine Appearance Urine pH Ur Specific [place] Urine Protein Urine Glucose (UA) Urine Ketones Urine Blood Urine Nitrite Ur Leukocyte Esterase Urine RBC Urine WBC Ur Squamous Epith Cells Urine Bacteria Hyaline Casts 10/17/23 10/17/23 10/17/23 20:43 21:21 22:01 Hold Purple Top Sodium Potassium Chloride Carbon Dioxide Anion Gap BUN Creatinine Estim Creat Clear Calc Estimated GFR POC Glucose 55 L* 121 H Random Glucose Calcium Urine Color Yellow Urine Appearance Turbid Urine pH 6.0 Ur Specific [place] 1.025 Urine Protein 100 (2+) H Urine Glucose (UA) Negative Urine Ketones Negative Urine Blood Moderate (2+) H Urine Nitrite Negative Ur Leukocyte Esterase Large (3+) H Urine RBC 6-10 H Urine WBC >50 H Ur Squamous Epith Cells 3-5 Urine Bacteria 4+ Hyaline Casts 0-2 10/18/23 10/18/23 10/18/23 06:58 07:10 07:31 Hold Purple Top SEE NOTE Sodium 130 L Potassium 5.1 D Chloride 97 Carbon Dioxide 21 L Anion Gap 17 BUN 48 H Creatinine 4.20 H* Estim Creat Clear Calc 19.5 Estimated GFR 14 POC Glucose 57 L* 126 H Random Glucose 88 Calcium 8.4 Urine Color Urine Appearance Urine pH Ur Specific [place] Urine Protein Urine Glucose (UA) Urine Ketones Urine Blood Urine Nitrite Ur Leukocyte Esterase Urine RBC Urine WBC Ur Squamous Epith Cells Urine Bacteria Hyaline Casts 10/18/23 08:23 Hold Purple Top Sodium Potassium Chloride Carbon Dioxide Anion Gap BUN Creatinine Estim Creat Clear Calc Estimated GFR POC Glucose 92 Random Glucose Calcium Urine Color Urine Appearance Urine pH Ur Specific [place] Urine Protein Urine Glucose (UA) Urine Ketones Urine Blood Urine Nitrite Ur Leukocyte Esterase Urine RBC Urine WBC Ur Squamous Epith Cells Urine Bacteria Hyaline Casts Imaging Chest x-ray: Radiologist's impression: ITS Impressions Chest X-Ray 10/17/23 11:56 IMPRESSION: 1. Bronchial thickening which can be seen in the setting of infectious/inflammatory etiology. 2. Left basilar radiopacity which may reflect atelectasis versus evolving infectious/inflammatory etiology. Abdomen/Pelvis CT 10/17/23 12:30 IMPRESSION: 1. Coxaugzc-if-mcilih stool burden, increased when compared to the prior examination. Rectal circumferential wall thickening, new when compared to the prior examination. Findings may be due to underdistention or indicate an infectious or inflammatory process. No evidence of perforation or abscess formation. 2. Partially distended urinary bladder with circumferential wall thickening, new when compared to the prior examination. Findings could represent an infectious or inflammatory process in the appropriate clinical setting. 3. Additional chronic findings are unchanged. Fleischner guidelines were followed. Head CT 10/17/23 12:31 IMPRESSION: 1. No acute intracranial hemorrhage. 2. Questionably asymmetric periventricular white matter hypodensity along the left posterior ventricular horn/parieto-occipital region may reflect underlying chronic white matter small vessel ischemic changes though correlation with symptomatology for subacute ischemic changes. Discharge Plan Discharge Anticipated Discharge Date/Time: 10/18/23 11:20 Patient Disposition: [facility] Discharge Diagnosis: Need for dialysis Pneumonia Constipation Referrals: [facility] [Outside] - 1 Week Physician,Unknown J [Primary Care Provider] - 1 Week Discharge Medications: New doxycycline monohydrate 100 mg Capsule 100 mg PO Q12H Qty: 12 0RF cefuroxime axetil 250 mg tablet 250 mg PO DAILY Qty: 6 0RF lactulose 20 gram/30 mL Solution 20 g PO BID Qty: 1200 0RF Rx Instructions: HOLD FOR DIALYSIS Continued fluoxetine 40 mg Capsule 40 mg PO DAILY@1200 latanoprost 0.005 % Drops 1 drp OPHTHALMIC (EYE) BEDTIME sennosides [senna] 8.6 mg Tablet 17.2 mg PO BID tizanidine 2 mg Tablet 2 mg PO Q8H PRN (Reason: MUSCLE SPASMS) atorvastatin 10 mg Tablet 10 mg PO BEDTIME amiodarone 200 mg Tablet 200 mg PO DAILY@1200 melatonin 3 mg Tablet 3 mg PO BEDTIME aspirin 81 mg Tablet,Delayed Release (Dr/Ec) 81 mg PO DAILY@1200 isosorbide mononitrate 60 mg Tablet Extended Release 24 Hr 60 mg PO DAILY@1200 lorazepam 0.5 mg Tablet 0.5 mg PO BID PRN (Reason: Anxiety) tamsulosin 0.4 mg Capsule 0.4 mg PO BEDTIME bisacodyl 10 mg Suppository 10 mg AR DAILY PRN (Reason: Constipation) ferrous sulfate 325 mg (65 mg iron) Tablet 325 mg PO Q2D@1200 gabapentin 100 mg capsule 100 mg PO BID insulin lispro 100 unit/mL Solution 1 sliding scale dose SUBCUT TIDAC polyethylene glycol 3350 17 gram/dose Powder 17 g PO DAILY@1200 bupropion HCl 300 mg tablet extended release 24 hr 300 mg PO DAILY@1200 lactulose 10 gram/15 mL Solution 20 g PO TID PRN (Reason: Constipation) cholecalciferol (vitamin D3) 25 mcg (1,000 unit) Tablet 25 mcg PO DAILY insulin glargine [Lantus Solostar U-100 Insulin] 100 unit/mL (3 mL) Insulin Pen 15 unit SUBCUT BEDTIME albuterol sulfate 2.5 mg /3 mL (0.083 %) Solution For Nebulization 2.5 mg INHALATION Q4H PRN (Reason: Shortness Of Breath Or Wheezing) Artificial Tears (PF) 0.1-0.3 % Dropperette 2 drp OPHTHALMIC (EYE) Q4H PRN (Reason: Dry Eyes) Combivent Respimat 20-100 mcg/actuation Mist 2 puff INHALATION Q6H PRN (Reason: Shortness Of Breath Or Wheezing) sevelamer HCl 800 mg Tablet 800 mg PO TIDWM Rx Instructions: must administer with a meal/food oxycodone 15 mg Tablet 15 mg PO Q6H PRN (Reason: Pain) pantoprazole 20 mg Tablet,Delayed Release (Dr/Ec) 20 mg PO DAILY@0630 trazodone 150 mg tablet 150 mg PO BEDTIME nitroglycerin 0.4 mg Tablet, Sublingual 0.4 mg SUBLINGUAL Q5M PRN (Reason: Chest Pain) Rx Instructions: do not exceed 3 doses per episode Nephro Vitamins 0.8 mg Tablet 1 tab PO DAILY metoprolol succinate 25 mg Tablet Extended Release 24 Hr 25 mg PO DAILY@1200 Discharge Orders: Discharge Order (Routine); Ordered 10/18/23 Ordered By: Rolan Guillen Diet: Advance to usual diet Activity on Discharge: As tolerated Stand Alone Forms: Patient Portal Discharge page Print Language: [place] Care Plan Goals: Read below Health Concerns: Read below Plan of Treatment: Read below Assessment: Continue Antibiotics for pneumonia Continue dialysis as scheduled
[2023-10-18 11:39] LABS: Glucose, Whole Blood 83 mg/dL (60-115)
[2023-10-18 11:51] VITALS: BP 168/79; PULSE 62; RESP 16; TEMP 37.2; O2SAT 92
[2023-10-18] MEDS: polyethylene glycoL 3350 17 GM POWD.PACK PO (12:20)
[2023-10-18] MEDS: Metoprolol Succinate ER 25 MG TAB.ER.24H PO (12:20)
[2023-10-18] MEDS: Isosorbide Mononitrate 60 MG TAB.ER.24H PO (12:20)
[2023-10-18] MEDS: Aspirin Enteric Coated 81 MG TABLET.DR PO (12:20)
[2023-10-18] MEDS: buPROPion HCl XL 300 MG TAB.ER.24H PO (12:20)
[2023-10-18] MEDS: Amiodarone HCL 200 MG TABLET PO (12:21)
[2023-10-18] MEDS: FLUoxetine HCl 20 MG CAPSULE 40 MG PO (12:21)
[2023-10-18] MEDS: Sevelamer Carbonate Tablet 800 MG TABLET PO (12:27)
--- NOTE | 2023-10-18 13:51 | MHC.CM.PN ---
Pt medically cleared for discharge back to [facility] today via BLS/[facility] at 1pm.
== END 2023-10-18 13:50 | disposition skilled nursing facility (03) | DRG 466 ==
LOC: HO.ED 14:36 → HO.EDOVER 15:24 → HO.IMC 10-18 07:30
PROVIDERS: Admitting Provider Student in an Organized Health Care Education/Training Program; Emergency Provider Emergency Medicine; Visit Provider Student in an Organized Health Care Education/Training Program
DX: T82.49XA Other complication of vascular dialysis catheter, initial encounter (principal); N18.6 End stage renal disease; G92.8 Other toxic encephalopathy; I13.2 Hypertensive heart and chronic kidney disease with heart failure and with stage 5 chronic kidney disease, or end stage renal disease; J18.9 Pneumonia, unspecified organism; I42.8 Other cardiomyopathies; J44.0 Chronic obstructive pulmonary disease with (acute) lower respiratory infection; E11.22 Type 2 diabetes mellitus with diabetic chronic kidney disease; K59.00 Constipation, unspecified; I48.91 Unspecified atrial fibrillation; J98.11 Atelectasis; E87.5 Hyperkalemia; Z99.2 Dependence on renal dialysis; I50.42 Chronic combined systolic (congestive) and diastolic (congestive) heart failure; Z95.810 Presence of automatic (implantable) cardiac defibrillator; Z91.158 Patient's noncompliance with renal dialysis for other reason; Z79.4 Long term (current) use of insulin; Z79.82 Long term (current) use of aspirin; Z79.899 Other long term (current) drug therapy
CPT/HCPCS: 36415; 70450; 71045; 74176; 80048; 80053; 81001; 82947; 83735; 84484; 85025; 85610; 87040; 87086; 87088; 87186; 90999; 93005; 99222; 99285; J0696; J1644; J2543

== ENCOUNTER → 2023-10-17 09:25 | Outpatient (BNV) | payer MEDICAID, SELFPAY | PROVIDERS: Admitting Provider Student in an Organized Health Care Education/Training Program; Emergency Provider Emergency Medicine; Visit Provider Internal Medicine Cardiovascular Disease | DX: R07.9 Chest pain, unspecified (principal) | CPT/HCPCS: 93010 ==

== ENCOUNTER → 2023-10-17 15:23 | Outpatient (BNV) | payer MEDICAID, SELFPAY | PROVIDERS: Admitting Provider Student in an Organized Health Care Education/Training Program; Emergency Provider Emergency Medicine; Visit Provider Student in an Organized Health Care Education/Training Program | DX: J18.9 Pneumonia, unspecified organism (principal); E87.5 Hyperkalemia; G92.8 Other toxic encephalopathy; N18.6 End stage renal disease; Z99.2 Dependence on renal dialysis; T82.9XXA Unspecified complication of cardiac and vascular prosthetic device, implant and graft, initial encounter; E16.2 Hypoglycemia, unspecified | CPT/HCPCS: 99223; 99239; 99499 ==